=== PATIENT | male | born 1955 | race African-American/Black ===

== ENCOUNTER 2017-12-12 08:44 | Inpatient (IN) | payer OTHER ==
[2017-12-11 14:38] VITALS: BMI 28.3
[2017-12-12] MEDS ORDERED: DEXAMETHASONE SOD PHOSPHATE 4 MG/1 ML VIAL ONE (10:16)
[2017-12-12] MEDS ORDERED: PROPOFOL 20 ML ONE (10:16)
[2017-12-12] MEDS ORDERED: MIDAZOLAM HCL 2 MG/2 ML SINGLE DOSE VIAL ONE (10:16)
[2017-12-12] MEDS ORDERED: LIDOCAINE HCL/PF 2% SDV 5ML VIAL ONE (10:16)
--- NOTE | 2017-12-12 10:42 | HP ---
Admitting History and Physical - Admission Chief Complaint: Pt with right lower extremity rest pain. Pt has a occluded right common, internal, and external iliac artery on CTA. Pt here today for fem- fem bypass. Limitations to Obtaining History: No Limitations - Smoking History Smoking history: Never smoked Have you smoked in the past 12 months: No - Alcohol/Substance Use Hx Alcohol Use: No Home Medications - Allergies Allergies/Adverse Reactions: Allergies Allergy/AdvReac Type Severity Reaction Status Date / Time No Known Allergies Allergy Verified 12/11/17 14:38 - Home Medications Home Medications: Ambulatory Orders Amlodipine Besylate [Norvasc -] 5 mg PO DAILY 12/14/12 Aspirin [ASA -] 81 mg PO DAILY 12/14/12 Docusate Sodium [Colace -] 100 mg PO DAILY 12/14/12 Isosorbide Mononitrate [Imdur] 30 mg PO DAILY 12/14/12 Lisinopril [Prinivil -] 5 mg PO DAILY 12/14/12 Metoprolol Tartrate [Lopressor -] 25 mg PO DAILY 12/14/12 Topiramate [Topamax] 50 mg PO BID 12/14/12 levETIRAcetam [Keppra Xr -] 1,500 mg PO BID 12/14/12 Cyclobenzaprine HCl 10 mg PO DAILY 12/11/17 Finasteride 5 mg PO DAILY 12/11/17 Gabapentin 300 mg PO TID 12/11/17 Multivitamin [Daily Multiple Vitamin] 1 each PO DAILY 12/11/17 Ranitidine HCl [Zantac] 200 mg PO DAILY 12/11/17 Rivaroxaban [Xarelto -] DAILY 12/11/17 Tamsulosin HCl 0.4 mg PO DAILY 12/11/17 Warfarin Sodium [Coumadin] PO DAILY 12/11/17 Xalatan 0.005% Eye Drops - 1 drop OU DAILY 12/11/17 Review of Systems - Review of Systems Constitutional: reports: No Symptoms Eyes: reports: No Symptoms HENT: reports: No Symptoms Neck: reports: No Symptoms Cardiovascular: reports: No Symptoms Respiratory: reports: No Symptoms Gastrointestinal: reports: No Symptoms Musculoskeletal: reports: No Symptoms Integumentary: reports: No Symptoms Neurological: reports: No Symptoms Endocrine: reports: No Symptoms Hematology/Lymphatic: reports: No Symptoms Psychiatric: reports: No Symptoms Physical Examination Vital Signs: Vital Signs Temperature 97.9 F 10/25/18 09:50 Pulse Rate 91 H 12/12/17 09:50 Respiratory Rate 20 12/12/17 09:50 Blood Pressure 156/97 12/12/17 09:50 O2 Sat by Pulse Oximetry (%) 99 12/12/17 09:50 Constitutional: Yes: Well Nourished, No Distress, Calm Eyes: Yes: WNL, Conjunctiva Clear, EOM Intact HENT: Yes: WNL, Atraumatic, Normocephalic Neck: Yes: WNL, Supple, Trachea Midline Cardiovascular: Yes: WNL, Regular Rate and Rhythm Respiratory: Yes: WNL, Regular, CTA Bilaterally Gastrointestinal: Yes: WNL, Normal Bowel Sounds Musculoskeletal: Yes: WNL Extremities: Yes: WNL Edema: No Peripheral Pulses WNL: No Integumentary: Yes: WNL Neurological: Yes: WNL, Alert, Oriented ...Motor Strength: WNL Psychiatric: Yes: WNL Problem List - Problems (1) Atherosclerosis of right lower extremity with rest pain Assessment/Plan: Right lower ext rest pain secondary to right common, internal, external iliac artery occlusion. Pt cleared from a medical and cardiology standpoint. 1. For Fem-fem bypass today. Code(s): I70.221 - ATHSCL [place] ARTERIES OF EXTREMITIES W REST PAIN, RIGHT LEG
[2017-12-12] MEDS ORDERED: HEPARIN NA (PORCINE) 5,000 UNITS/ML 1ML VIAL ONE (11:11)
[2017-12-12] MEDS ORDERED: ceFAZolin SODIUM 1 GM VIAL ONE (11:19)
[2017-12-12] MEDS ORDERED: ceFAZolin SODIUM 1 GM VIAL IVPB ONE (11:49)
[2017-12-12] MEDS ORDERED: ONDANSETRON 4 MG/2 ML VIAL IVPUSH PRN (12:36)
[2017-12-12] MEDS ORDERED: POVIDONE-IODINE OINTMENT 10% - 28.4 GM TUBE ONE (14:00)
--- NOTE | 2017-12-12 14:02 | OP ---
Operative Note - Note: Operative Date: 12/12/17 Pre-Operative Diagnosis: Right lower extremity rest pain Operation: Femoral-Femoral bypass with PTFE graft Findings: Right common iliac artery, internal iliac, external iliac artery occlusion Post-Operative Diagnosis: Same as Pre-op Surgeon: Jesús Powell Inpatient Services Director: Aime Jolly Anesthesia: General Estimated Blood Loss (mls): 100 Operative Report Dictated: Yes
--- NOTE | 2017-12-12 15:09 | SURG ---
Surgery Health Safety Manager Note Health Safety Manager: Aime Jolly PA-C Date of Service: 12/12/17 Diagnosis: Right lower extremity rest pain secondary to Right common iliac artery, internal iliac, external iliac artery occlusion Procedure: Femoral-Femoral bypass with PTFE graft I was present for the entirety of the operative procedure. For further detail, please refer to operative report. Visit type - Case Type Case Type: Scheduled - New patient This patient is new to me today: Yes Date on this admission: 12/12/17
[2017-12-12] MEDS: LACTATED RINGERS SOLUTION 1,000 ML IV SCH (16:03)
[2017-12-12] MEDS: APIXABAN 5 MG TABLET PO SCH ×2 (16:03→21:47)
--- NOTE | 2017-12-12 17:36 | CONSULT ---
Consultation: REQUESTING PROVIDER: CONSULT REQUEST: We have been asked to medically evaluate this patient for ( specify). HISTORY OF PRESENT ILLNESS: Patient is a poor historian. History obtained from prior notes and chart. 62 yo M w a history of CVA w residual R hemiparesis, HTN, Afib, Anemia, GERD, SBO, BPH came in for elective Fem -Fem R sided bypass surgery by Dr. Powell. Post surgery patient transfered to ICU for monitoring. REVIEW OF SYSTEMS: Unobtainable. PHYSICAL EXAMINATION Vital Signs - 24 hr 12/12/17 12/12/17 12/12/17 09:50 14:11 14:25 Temperature 97.9 F 98.4 F Pulse Rate 91 H 101 H 106 H Respiratory 20 14 20 Rate Blood Pressure 156/97 156/90 164/90 O2 Sat by Pulse 99 96 96 Oximetry (%) 12/12/17 12/12/17 12/12/17 14:40 14:55 15:10 Temperature Pulse Rate 105 H 104 H 103 H Respiratory 20 20 20 Rate Blood Pressure 152/88 161/90 166/94 O2 Sat by Pulse 96 95 96 Oximetry (%) 12/12/17 12/12/17 12/12/17 15:25 15:40 15:55 Temperature Pulse Rate 110 H 108 H 108 H Respiratory 20 20 20 Rate Blood Pressure 187/97 H 167/91 155/93 O2 Sat by Pulse 98 96 98 Oximetry (%) 12/12/17 12/12/17 12/12/17 16:10 16:25 16:40 Temperature Pulse Rate 102 H 106 H 104 H Respiratory 20 20 20 Rate Blood Pressure 155/89 142/85 157/89 O2 Sat by Pulse 98 99 98 Oximetry (%) 12/12/17 12/12/17 12/12/17 16:50 17:05 17:16 Temperature 98.9 F 98 F Pulse Rate 107 H 104 H Respiratory 20 18 Rate Blood Pressure 142/92 157/104 H O2 Sat by Pulse 98 Oximetry (%) GENERAL: Awake, alert, and fully oriented, in no acute distress. HEAD: Normal with no signs of trauma. EYES: Pupils equal, round and reactive to light, extraocular movements intact, sclera anicteric, conjunctiva clear. No lid lag. EARS, NOSE, THROAT: Ears normal, nares patent, oropharynx clear without exudates. Moist mucous membranes. NECK: Normal range of motion, supple without lymphadenopathy, JVD, or masses. LUNGS: Breath sounds equal, clear to auscultation bilaterally. No wheezes, and no crackles. No accessory muscle use. HEART: Tachycardic rate and regular rhythm, normal S1 and S2 without murmur, rub or gallop. ABDOMEN: Soft, nontender, not distended, normoactive bowel sounds, no guarding, no rebound, no masses. No hepatomegaly or splenomegaly. MUSCULOSKELETAL: Normal range of motion at all joints. No bony deformities or tenderness. No CVA tenderness. UPPER EXTREMITIES: 2+ pulses, warm, well-perfused. No cyanosis. No clubbing. Cap refill <2 seconds. No peripheral edema. LOWER EXTREMITIES: 2+ pulses, warm, well-perfused. No peripheral edema. There is significant TTP in the R leg. Motor strength is decreased in R compared to L. Patient has discoloration of b/l shins which appear to be pre-ulcerous in nature. Laboratory Results - last 24 hr 12/12/17 12/12/17 11:00 11:15 Blood Type O POSITIVE O POSITIVE Antibody Screen Negative Active Medications Generic Name Dose Route Start Last Admin Trade Name Freq PRN Reason Stop Dose Admin Amlodipine Besylate 5 mg 12/13/17 10:00 Norvasc - PO DAILY AMANDA Apixaban 5 mg 12/12/17 15:15 12/12/17 16:03 Eliquis - PO 5 mg BID AMANDA Administration Cyclobenzaprine HCl 5 mg 12/13/17 10:00 Flexeril - PO DAILY AMANDA Fentanyl 50 mcg 12/12/17 12:36 12/12/17 16:15 Sublimaze Injection - IVPUSH 50 mcg [id number] PRN Administration PAIN-PACU ORDER X 4 DOSES ONLY Finasteride 5 mg 12/13/17 10:00 Proscar - PO DAILY AMANDA Lactated Ringer's 1,000 mls @ 75 mls/hr 12/12/17 12:45 12/12/17 16:03 Lactated Ringers Solution IV 75 mls/hr ASDIR AMANDA Administration Isosorbide Mononitrate 30 mg 12/13/17 10:00 Imdur - PO DAILY AMANDA Levetiracetam 1,500 mg 12/12/17 22:00 Keppra Xr - PO BID AMANDA Lisinopril 5 mg 12/13/17 10:00 Prinivil PO DAILY AMANDA Ondansetron HCl 4 mg 12/12/17 12:36 Zofran Injection IVPUSH Q6H PRN NAUSEA AND/OR VOMITING ASSESSMENT/PLAN: PVD s/p Fem-Fem bypass. Hx of CVA w R sided residual hemiparesis AFIB Anemia GERD BPH Plan: Monitor vitals monitor Is and Os Regular pulse check - Pain management with morphine. Continue with keppra Continue with BP meds Lisinopril and amlodipine Continue with Imdur Continue Elliquis for AIF Protonix for GERD Starting on 50 ml/hr on oral clear liquid. Dispo: We will continue to follow the patient. Thank you for this consultative opportunity. Visit type - Emergency Visit Emergency Visit: No - New Patient This patient is new to me today: Yes Date on this admission: 12/12/17 - Critical Care Critical Care patient: Yes Total Critical Care Time (in minutes): 36 Critical Care Statement: The care of this patient involved high complexity decision making to prevent further life threatening deterioration of the patient 's condition and/or to evaluate & treat vital organ system(s) failure or risk of failure.
[2017-12-12] MEDS ORDERED: MORPHINE SULFATE 2 MG/ML VIAL IVPUSH PRN (17:43)
[2017-12-12] MEDS: PANTOPRAZOLE 40 MG TABLET (FP) PO SCH (18:30)
[2017-12-12] MEDS ORDERED: METOPROLOL TARTRATE 5 MG/5 ML VIAL ONE (19:25)
[2017-12-12] MEDS ORDERED: LORazepam 2 MG/ML SDV VIAL IVPUSH ONE (19:26)
[2017-12-12] MEDS ORDERED: METOPROLOL TARTRATE 5 MG/5 ML VIAL IVPUSH ONE (19:26)
[2017-12-12] MEDS ORDERED: levETIRAcetam 500 MG/5 ML INJECTION VIAL IVPB ONE ×3 (19:27→19:45)
[2017-12-12] MEDS ORDERED: LORazepam 2 MG/ML SDV VIAL ONE (19:27)
[2017-12-12] MEDS ORDERED: metoPROLOL SUCCINATE 25 MG TAB.SR.24H (FP) PO ONE (19:38)
--- NOTE | 2017-12-12 19:53 | PN ---
Progress Note (short form) - Note Progress Note: Patient around 19:30 had partial seizure for about 1.5 minutes associated with Tachycardia. Patient was awake during the seizure with no loss of consciousness. Patient's heart rate increased to the 170's but maintained a saturation at 100% on RA Lopressor 5mg IVP given and heart rate went down to the 90's Loading dose of Keppra 1000mg IVP given Ativan 2mg ordered but not given due to halt of seizure Dr. Powell, vascular Surgeon, aware of situation and was at bedside to assess patient. Recommended Medicine consult Patient likely missed dose of Keppra for procedure today Labs ordered: CBC, CMP, PT/INR, LACTIC ACIDOSIS, CARDIAC PROFILE, EKG EKG - NSR @97BMP, No ST-T changes Will continue to monitor. Symphony made aware
[2017-12-12 21:17] LABS: HEMATOCRIT 39.6 % (35.4-49); HEMOGLOBIN 12.6 GM/dL (11.7-16.9); LYMPH % 13.3 % (8-40); MCHC 31.7 g/dl (32.0-35.9); MEAN CELL VOLUME 88.5 fl (80-96); MONO % 9.7 % (3.8-10.2); PLATELET COUNT 182 K/MM3 (134-434); RBC 4.48 M/mm3 (4.00-5.60); RDW 12.8 % (11.9-15.9); WHITE BLOOD COUNT 12.8 K/mm3 (4.0-10.0)
[2017-12-12 21:30] LABS: INR 1.18 (0.83-1.09)
--- NOTE | 2017-12-12 21:38 | CONSULT ---
Consultation: REQUESTING PROVIDER: Dr. Jesús Powell CONSULT REQUEST: We have been asked to medically evaluate this patient for seizure. HISTORY OF PRESENT ILLNESS: 62-year-old male who resides at [facility], with a PMH significant for A-fib on Eliquis, CVA with right-sided hemiparesis, HTN, seizures, PVD, aphasia, anemia, GERD, SBO, and BPH presented today for elective femoral- femoral R sided bypass surgery by Dr. Powell. The procedure was performed today without complication, he was admitted to the ICU for post-op monitoring. At 19: 30, patient observed having a 1.5 min episode of jerking motions and tachycardia of 167. A rapid response was called and patient was given IV Metoprolol, Lopressor 5 mg, and 1500 mg IV keppra. HR slowed to the 90s and jerking motions subsided. STAT labs notable for WBC of 12.8, lactic acid of 4.6 , AST 354, ALT 374, Alk phos 141. EKG unremarkable for acute ischemic event. Patient now back to baseline and resting comfortably in his room. Patient is non -verbal and limited history in medical chart. REVIEW OF SYSTEMS: Unable to obtain, patient non-verbal. PHYSICAL EXAMINATION Vital Signs - 24 hr 12/12/17 12/12/17 12/12/17 09:50 14:11 14:25 Temperature 97.9 F 98.4 F Pulse Rate 91 H 101 H 106 H Respiratory 20 14 20 Rate Blood Pressure 156/97 156/90 164/90 O2 Sat by Pulse 99 96 96 Oximetry (%) 12/12/17 12/12/17 12/12/17 14:40 14:55 15:10 Temperature Pulse Rate 105 H 104 H 103 H Respiratory 20 20 20 Rate Blood Pressure 152/88 161/90 166/94 O2 Sat by Pulse 96 95 96 Oximetry (%) 12/12/17 12/12/17 12/12/17 15:25 15:40 15:55 Temperature Pulse Rate 110 H 108 H 108 H Respiratory 20 20 20 Rate Blood Pressure 187/97 H 167/91 155/93 O2 Sat by Pulse 98 96 98 Oximetry (%) 12/12/17 12/12/17 12/12/17 16:10 16:25 16:40 Temperature Pulse Rate 102 H 106 H 104 H Respiratory 20 20 20 Rate Blood Pressure 155/89 142/85 157/89 O2 Sat by Pulse 98 99 98 Oximetry (%) 12/12/17 12/12/17 12/12/17 16:50 17:05 17:16 Temperature 98.9 F 98 F Pulse Rate 107 H 104 H Respiratory 20 18 Rate Blood Pressure 142/92 157/104 H O2 Sat by Pulse 98 Oximetry (%) 12/12/17 19:35 Temperature Pulse Rate 167 H Respiratory Rate Blood Pressure 168/99 O2 Sat by Pulse Oximetry (%) GENERAL: Awake, alert, non-verbal, in no acute distress. HEAD: Normal with no signs of trauma. EYES: Pupils equal, round and reactive to light, extraocular movements intact, sclera anicteric, conjunctiva clear. No lid lag. EARS, NOSE, THROAT: Many missing teeth, nares patent, oropharynx clear without exudates. Moist mucous membranes. NECK: Normal range of motion, supple without lymphadenopathy, JVD, or masses. LUNGS: Breath sounds equal, clear to auscultation bilaterally. No wheezes, and no crackles. No accessory muscle use. HEART: slightly tachycardic rate, regular rhythm, normal S1 and S2 without murmur, rub or gallop. ABDOMEN: Soft, nontender, not distended, normoactive bowel sounds, no guarding, no rebound, no masses. No hepatomegaly or splenomegaly. : +Mathew draining dark yellow urine. MUSCULOSKELETAL: Normal range of motion at all joints. No bony deformities or tenderness. No CVA tenderness. UPPER EXTREMITIES: 2+ pulses, warm, well-perfused. No cyanosis. No clubbing. Cap refill <2 seconds. No peripheral edema. LOWER EXTREMITIES: 2+ pulses, warm, well-perfused. No calf tenderness. No peripheral edema. NEUROLOGICAL: Aphasia PSYCHIATRIC: Good eye contact, calm, pleasant SKIN: Warm, dry, normal turgor, no rashes or lesions noted. Laboratory Results - last 24 hr 12/12/17 12/12/17 12/12/17 11:00 11:15 20:45 WBC 12.8 H RBC 4.48 Hgb 12.6 Hct 39.6 D MCV 88.5 MCH 28.0 MCHC 31.7 L RDW 12.8 Plt Count 182 D MPV 9.0 Absolute Neuts (auto) 9.8 H Neutrophils % 77.0 D Lymphocytes % 13.3 D Monocytes % 9.7 Eosinophils % 0.0 D Basophils % 0.0 Nucleated RBC % 0 Blood Type O POSITIVE O POSITIVE Antibody Screen Negative Active Medications Generic Name Dose Route Start Last Admin Trade Name Freq PRN Reason Stop Dose Admin Amlodipine Besylate 5 mg 12/13/17 10:00 Norvasc - PO DAILY [facility] Apixaban 5 mg 12/12/17 15:15 12/12/17 16:03 Eliquis - PO 5 mg BID [facility] Administration Cyclobenzaprine HCl 5 mg 12/13/17 10:00 Flexeril - PO DAILY [facility] Fentanyl 50 mcg 12/12/17 12:36 12/12/17 16:15 Sublimaze Injection - IVPUSH 50 mcg [id number] PRN Administration PAIN-PACU ORDER X 4 DOSES ONLY Finasteride 5 mg 12/13/17 10:00 Proscar - PO DAILY [facility] Lactated Ringer's 1,000 mls @ 75 mls/hr 12/12/17 12:45 12/12/17 16:03 Lactated Ringers Solution IV 75 mls/hr ASDIR [facility] Administration Isosorbide Mononitrate 30 mg 12/13/17 10:00 Imdur - PO DAILY [facility] Levetiracetam 1,500 mg 12/13/17 10:00 Keppra Xr - PO BID [facility] Lisinopril 5 mg 12/13/17 10:00 Prinivil PO DAILY [facility] Morphine Sulfate 2 mg 12/12/17 17:43 Morphine Sulfate IVPUSH Q6H PRN PAIN LEVEL 7 - 10 Ondansetron HCl 4 mg 12/12/17 12:36 Zofran Injection IVPUSH Q6H PRN NAUSEA AND/OR VOMITING Pantoprazole Sodium 40 mg 12/12/17 17:45 12/12/17 18:30 Protonix - PO 40 mg DAILY AMANDA Administration ASSESSMENT/PLAN: 62-year-old male with a PMH significant for A-fib, CVA with right-sided hemiparesis, HTN, seizures, PVD, mild aphasia, anemia, GERD, SBO, and BPH had elective femoral-femoral R sided bypass surgery by Dr. Andre mora. While in recovery in the ICU he was observed having a 1.5 minute seizure. Seizures -Simple partial seizure post-op today -It is presumed patient did not receive AM dose of Keppra prior to surgery -Patient with a hx of seizures -On Keppra 1000 mg BID -Continue to monitor in ICU Leukocytosis and lactic acidosis -Patient afebrile -Likely secondary to seizure activity -STAT lactic acid ordered -Repeat CBC ordered Elevated Liver enzymes -Will order repeat LFTs for tomorrow -Abd US ordered A-fib on coumadin -On Eliquis 5 mg BID -On Metoprolol Succinate 25 mg for rate control -INR 1.18 HTN -Continue Lisinopril 5 mg -Continue Amlodipine 5 mg daily GERD -Protonix 40 mg qday BPH -Continue Proscar 5 mg PO qday FEN --LR @75 cc/hr --Electrolytes replete as indicated --Clear liquid diet DVT Prophylaxis --On Eliquis Dispo: We will continue to follow the patient. Thank you for this consultative opportunity. Visit type - Emergency Visit Emergency Visit: Yes ED Registration Date: 12/12/17 Care time: The patient presented to the Emergency Department on the above date and was hospitalized for further evaluation of their emergent condition. - New Patient This patient is new to me today: Yes Date on this admission: 12/18/17 - Critical Care Critical Care patient: No
[2017-12-12 21:44] LABS: ALBUMIN 3.4 g/dl (3.4-5.0); ALK PHOS 141 U/L (45-117); ANION GAP 10 MMOL/L (8-16); BILIRUBIN,TOTAL 1.4 mg/dL (0.2-1); BLOOD UREA NITROGEN 16 mg/dL (7-18); CALCIUM 8.5 mg/dL (8.5-10.1); CHLORIDE 112 mmol/L (98-107); CO2 24 mmol/L (21-32); CREATININE 1.2 mg/dL (0.55-1.3); GLUCOSE,RANDOM 148 mg/dL (74-106); MAGNESIUM 1.9 mg/dL (1.8-2.4); PHOSPHOROUS 3.2 mg/dL (2.5-4.9); POTASSIUM 4.4 mmol/L (3.5-5.1); SGOT/AST 354 U/L (15-37); SGPT/ALT 374 U/L (13-61); SODIUM 146 mmol/L (136-145); TOT PROT 7.6 g/dl (6.4-8.2)
[2017-12-12] MEDS ORDERED: levETIRAcetam XR 500 MG TAB PO SCH (22:00)
[2017-12-13 06:20] LABS: BASO % 0.5 % (0-2.0); EOS % 0.3 % (0-4.5); HEMATOCRIT 40.4 % (35.4-49); HEMOGLOBIN 12.6 GM/dL (11.7-16.9); LYMPH % 27.2 % (8-40); MCH 27.8 pg (25.7-33.7); MCHC 31.2 g/dl (32.0-35.9); MEAN CELL VOLUME 89.2 fl (80-96); MONO % 12.5 % (3.8-10.2); NEUT % 59.5 % (42.8-82.8); PLATELET COUNT 158 K/MM3 (134-434); RBC 4.52 M/mm3 (4.00-5.60); RDW 12.6 % (11.9-15.9); WHITE BLOOD COUNT 15.1 K/mm3 (4.0-10.0)
[2017-12-13 07:39] LABS: ALBUMIN 3.4 g/dl (3.4-5.0); ALK PHOS 134 U/L (45-117); ANION GAP 7 MMOL/L (8-16); BILIRUBIN,TOTAL 1.9 mg/dL (0.2-1); BLOOD UREA NITROGEN 14 mg/dL (7-18); CALCIUM 8.7 mg/dL (8.5-10.1); CHLORIDE 110 mmol/L (98-107); CO2 25 mmol/L (21-32); CREATININE 0.9 mg/dL (0.55-1.3); GLUCOSE,RANDOM 102 mg/dL (74-106); MAGNESIUM 1.9 mg/dL (1.8-2.4); PHOSPHOROUS 2.4 mg/dL (2.5-4.9); POTASSIUM 3.9 mmol/L (3.5-5.1); SGOT/AST 192 U/L (15-37); SGPT/ALT 306 U/L (13-61); SODIUM 143 mmol/L (136-145); TOT PROT 7.2 g/dl (6.4-8.2)
--- NOTE | 2017-12-13 07:55 | OP ---
DATE OF OPERATION: 12/13/2017 PREOPERATIVE DIAGNOSIS: Right lower extremity rest pain. POSTOPERATIVE DIAGNOSIS: Right lower extremity rest pain. PROCEDURE: Femorofemoral bypass with polytetrafluoroethylene graft. SURGEON: Jesús Powell MD FISCAL TECHNICIAN: DAWOOD Solis BLOOD LOSS: 100 mL. INDICATIONS: The patient is a 62-year-old male from [facility] who was sent to us with a CTA report showing that he has a right common iliac, right internal and right external iliac occlusion. He has bilateral SFA disease, as well. He is having rest pain in his right lower extremity. His left iliac arteries are patent, and he would be an appropriate candidate for a fem-fem bypass to relieve his pain. Patient was evaluated by the medical and the cardiology team, and he was then cleared for his surgery. Patient then came in through ambulatory surgery. Patients family was consented for the procedure understanding all risks, benefits, and alternatives, and was then taken to the operating room. PROCEDURE IN DETAIL: Once in the operating suite, he was laid on the operating table in the supine manner, and general anesthesia was administered to the patient. Mathew catheter was placed by the nurses. Thereafter bilateral groins were prepped and draped in the sterile surgical manner. Under ultrasound guidance, we were able to visualize the right and left common femoral arteries, and those were marked on the skin, and a vertical incision was drawn above and below the bifurcation. We then went ahead and made a 7-cm incision in bilateral groins. Bovie electrocautery was used to control hemostasis. We were able to get down through all the subcutaneous tissue and then get down to the femoral sheath. Femoral sheath was then opened and dissected. The common femoral artery was dissected anteriorly and posteriorly. We then dissected out our deep profunda artery bilaterally, as well. We then placed vessel loops around the deep profunda artery and around the proximal common femoral artery bilaterally. We then went ahead and took an 8 x 55 ringed PTFE graft and went ahead and put our tunneler, and we had a curved tunneler that went into the suprapubic region, and we were able to bring the tunneler from the left groin to the right groin. We then attached a PTFE graft, and the graft was tunneled through. We then cut the graft to size on the left side and doubled the graft. Then, 5000 units of IV heparin were administered to the patient proximal and distal control on our femoral arteries and the profunda arteries. We then went ahead and took a No. 15 blade and made an arteriotomy which was extended to 1 cm using May scissors, 6-0 Prolene stay sutures were placed. We then went ahead and used 6-0 Prolene double-armed and went outside in on the graft and inside out on the artery, and ran the stitch around it to form an anastomosis between the artery and the graft. Once that was done, we opened the profunda first, then, the inflow, and there was good flow in our graft, and the proximal graft was clamped with the vascular clamp. We went over to the right groin. The graft was cut to size, rings were removed, graft was beveled. We got proximal distal control on our common femoral artery and the profunda artery. Using a 15 blade, we made an arteriotomy, which was extended to 1 cm using May scissors. We then went ahead and placed 6-0 Prolene stay sutures on the artery. We then used 6-0 Prolene double-armed, went outside in on the graft and inside out on the artery, and ran the stitch around it to form an anastomosis between the artery and the graft prior to completely suturing in the graft. We flushed the graft by opening the inflow of the graft from the left side, and there was good flow. We then sutured the graft in place. We then opened the distal right common femoral artery first and then the proximal, and we then opened our graft, and there was good flow. Using a Doppler intraoperatively, we were able to get a good signal in the graft and in the upper [place] right common femoral artery and SFA and into the profunda. At this point, both wounds were irrigated copiously. Surgicel was placed, 3-0 Vicryl was used, and the subcutaneous tissues were approximated in an interrupted manner, and the skin was closed with skin rossi. The area was wet and dried, 4x4s and Tegaderm were placed. The patient tolerated the procedure with no complications. Patient was transferred to PACU in stable condition. The patient had a strong Dopplerable PT signal in the right foot. Total blood loss 100 mL. JESÚS POWELL DO [id number]
[2017-12-13 08:27] LABS: BILIRUBIN,DIRECT 0.5 mg/dL (0.0-0.2)
--- NOTE | 2017-12-13 08:34 | PN ---
Progress Note, Physician Chief Complaint: day 1 s/p femfem bypass - Current Medication List Current Medications: Active Medications Amlodipine Besylate (Norvasc -) 5 mg PO DAILY [facility] Apixaban (Eliquis -) 5 mg PO BID [facility] Last Admin: 12/12/17 21:47 Dose: 5 mg Cyclobenzaprine HCl (Flexeril -) 5 mg PO DAILY [facility] Finasteride (Proscar -) 5 mg PO DAILY [facility] Lactated Ringer's (Lactated Ringers Solution) 1,000 mls @ 75 mls/hr IV ASDIR [facility] Last Admin: 12/12/17 16:03 Dose: 75 mls/hr Sodium Phosphate 15 mm/ Sodium (Chloride) 255 mls @ 62.5 mls/hr IVPB ONCE ONE Stop: 12/13/17 12:23 Isosorbide Mononitrate (Imdur -) 30 mg PO DAILY [facility] Levetiracetam (Keppra Xr -) 1,500 mg PO BID [facility] Lisinopril (Prinivil) 5 mg PO DAILY [facility] Morphine Sulfate (Morphine Sulfate) 2 mg IVPUSH Q6H PRN PRN Reason: PAIN LEVEL 7 - 10 Ondansetron HCl (Zofran Injection) 4 mg IVPUSH Q6H PRN PRN Reason: NAUSEA AND/OR VOMITING Pantoprazole Sodium (Protonix -) 40 mg PO DAILY [facility] Last Admin: 12/12/17 18:30 Dose: 40 mg - Objective Vital Signs: Vital Signs Temperature 98.1 F 12/13/17 02:00 Pulse Rate 89 12/13/17 04:00 Respiratory Rate 20 12/13/17 04:00 Blood Pressure 148/86 12/13/17 04:00 O2 Sat by Pulse Oximetry (%) 98 12/12/17 21:00 Labs: CBC, BMP 12/13/17 05:30 12/13/17 05:30 INR, PTT INR 1.18 (0.83-1.09) H 12/12/17 20:45 Assessment/Plan Tolerated GETA for femfem bypass well. However, pt did have a seizure episode yesterday night (he has a history of epilepsy, with a seizure every few months as per sister), and was treated with keppra and metoprolol (tachycardia associated with sz). Doing well this morning.
[2017-12-13] MEDS ORDERED: PT OWN MED DRAWER 7, Y5N ONE ×3 (09:32→21:30)
[2017-12-13] MEDS: amLODIPine BESYLATE 5 MG TABLET (FP) PO SCH (09:35)
[2017-12-13] MEDS: PANTOPRAZOLE 40 MG TABLET (FP) PO SCH (09:35)
[2017-12-13] MEDS: APIXABAN 5 MG TABLET PO SCH ×2 (09:35→22:08)
[2017-12-13] MEDS: ISOSORBIDE MONONITRATE 30 MG TAB.SR.24H (FP) PO SCH (09:35)
[2017-12-13] MEDS: FINASTERIDE 5 MG TABLET (FP) PO SCH (09:35)
[2017-12-13] MEDS: CYCLOBENZAPRINE HCL 10 MG TABLET (FP) PO SCH (09:35)
[2017-12-13] MEDS: levETIRAcetam XR 500 MG TAB PO SCH ×2 (09:36→22:08)
[2017-12-13] MEDS: LISINOPRIL 5 MG TABLET (FP) PO SCH (09:36)
[2017-12-13] MEDS ORDERED: SODIUM PHOSPHATE - 15 MM in SODIUM CHLORIDE 250 ML IVPB ONE (10:00)
--- NOTE | 2017-12-13 10:18 | PN ---
Progress Note (short form) - Note Progress Note: Surgery POD #1 Femoral-Femoral bypass with PTFE graft patient seen and examined at the bedside. Patient communicates with yes or no answers, non-verbal. When asked if his pain is controlled he says yes. When asked about leg pain he says yes and points to his right leg. When asked if it is improved from pre-op he says yes. He denies any CP, SOB, N/V Fever or chills. He is tolerating his clear diet. Vital Signs Temp 99.3 F 12/13/17 08:00 Pulse 96 H 12/13/17 08:00 Resp 20 12/13/17 09:00 BP 147/83 12/13/17 08:00 Pulse Ox 98 12/13/17 09:00 Intake & Output 12/12/17 12/12/17 12/13/17 11:59 23:59 11:59 Intake Total 1375 525 Output Total 2600 600 Balance -1225 -75 Weight 202 lb 9.6 oz Intake: IV 1275 525 Lactated Ringers Solution 525 525 1,000 ml @ 75 mls/hr IV ASDIR AMANDA Rx#:[id number] IVPB 100 Output: Urine 2500 600 Mathew 800 600 Estimated Blood Loss 100 Other: Voiding Method Incontinent Indwelling Catheter Indwelling Catheter Weight Measurement Method Built in [facility] CBC, BMP 12/13/17 05:30 12/13/17 05:30 PE: A&Ox3, NAD, resting comfortably Unlabored resp on RA B/L Groin incisions c/d/i with surrounding tissue intact and no evidence of tracking erythema or collection. Thighs soft, supple and non-tender B/L LE compartments soft, non-tender and warm to touch. Dopplerable TP pulses b/ l, and + DP on Left LE. (Dr Powell followed with bedside doppler of graft and confirmed adequate flow.) Problem List - Problems (1) Status post femorofemoral bypass surgery Assessment/Plan: POD #1 fem-fem bypass, patient doing well. 1) Continue Elequis BID 2) OOb as tolerated 3) Advance diet 4) Keep dressing clean and dry 5) D/c planning for home today per Dr. Powell Code(s): Z95.828 - PRESENCE OF OTHER VASCULAR IMPLANTS AND GRAFTS
--- NOTE | 2017-12-13 12:14 | PN ---
Teaching Attending Note Name of Resident: Jeff Donald ATTENDING PHYSICIAN STATEMENT I saw and evaluated the patient. I reviewed the resident's note and discussed the case with the resident. I agree with the resident's findings and plan as documented. SUBJECTIVE: Patent seen and examined in the ICU. Awake and responsive. Denied CP or SOB. Seen by vascular surgery this AM and cleared to be discharged. Intake & Output 12/10/17 12/11/17 12/12/17 12/13/17 23:59 23:59 23:59 23:59 Intake Total 1375 525 Output Total 2600 600 Balance -1225 -75 Weight 197 lb 202 lb 9.6 oz Last Vital Signs Temp Pulse Resp BP Pulse Ox 99.3 F 95 H 20 157/82 98 12/13/17 08:00 12/13/17 10:25 12/13/17 10:25 12/13/17 10:25 12/13/17 09:00 Active Medications Amlodipine Besylate (Norvasc -) 5 mg PO DAILY [facility] Last Admin: 12/13/17 09:35 Dose: 5 mg Apixaban (Eliquis -) 5 mg PO BID [facility] Last Admin: 12/13/17 09:35 Dose: 5 mg Cyclobenzaprine HCl (Flexeril -) 5 mg PO DAILY [facility] Last Admin: 12/13/17 09:35 Dose: 5 mg Finasteride (Proscar -) 5 mg PO DAILY [facility] Last Admin: 12/13/17 09:35 Dose: 5 mg Lactated Ringer's (Lactated Ringers Solution) 1,000 mls @ 75 mls/hr IV ASDIR [facility] Last Admin: 12/12/17 16:03 Dose: 75 mls/hr Sodium Phosphate 15 mm/ Sodium (Chloride) 255 mls @ 62.5 mls/hr IVPB ONCE ONE Stop: 12/13/17 14:04 Last Admin: 12/13/17 11:55 Dose: 62.5 mls/hr Isosorbide Mononitrate (Imdur -) 30 mg PO DAILY [facility] Last Admin: 12/13/17 09:35 Dose: 30 mg Levetiracetam (Keppra Xr -) 1,500 mg PO BID [facility] Last Admin: 12/13/17 09:36 Dose: 1,500 mg Lisinopril (Prinivil) 5 mg PO DAILY [facility] Last Admin: 12/13/17 09:36 Dose: 5 mg Morphine Sulfate (Morphine Sulfate) 2 mg IVPUSH Q6H PRN PRN Reason: PAIN LEVEL 7 - 10 Ondansetron HCl (Zofran Injection) 4 mg IVPUSH Q6H PRN PRN Reason: NAUSEA AND/OR VOMITING Pantoprazole Sodium (Protonix -) 40 mg PO DAILY [facility] Last Admin: 12/13/17 09:35 Dose: 40 mg GENERAL: Awake and responsive, in no acute distress. HEAD: Normal with no signs of trauma. EYES: Pupils equal, round and reactive to light, extraocular movements intact, sclera anicteric, conjunctiva clear. No lid lag. EARS, NOSE, THROAT: Ears normal, nares patent, oropharynx clear without exudates. Moist mucous membranes. NECK: Normal range of motion, supple without lymphadenopathy, JVD, or masses. LUNGS: Breath sounds equal, clear to auscultation bilaterally. No wheezes, and no crackles. No accessory muscle use. HEART: Tachycardic rate and regular rhythm, normal S1 and S2 without murmur, rub or gallop. ABDOMEN: Soft, nontender, not distended, normoactive bowel sounds, no guarding, no rebound, no masses. No hepatomegaly or splenomegaly. MUSCULOSKELETAL: Normal range of motion at all joints. No bony deformities or tenderness. No CVA tenderness. UPPER EXTREMITIES: 2+ pulses, warm, well-perfused. No cyanosis. No clubbing. Cap refill <2 seconds. No peripheral edema. LOWER EXTREMITIES: 2+ pulses, warm, well-perfused. No peripheral edema. Motor strength is decreased in R compared to L. Laboratory Results - last 24 hr 12/12/17 12/12/17 12/12/17 11:00 11:15 20:45 WBC 12.8 H RBC 4.48 Hgb 12.6 Hct 39.6 D MCV 88.5 MCH 28.0 MCHC 31.7 L RDW 12.8 Plt Count 182 D MPV 9.0 Absolute Neuts (auto) 9.8 H Neutrophils % 77.0 D Lymphocytes % 13.3 D Monocytes % 9.7 Eosinophils % 0.0 D Basophils % 0.0 Nucleated RBC % 0 PT with INR INR Sodium Potassium Chloride Carbon Dioxide Anion Gap BUN Creatinine Creat Clearance w eGFR Random Glucose Lactic Acid Calcium Phosphorus Magnesium Total Bilirubin Direct Bilirubin AST ALT Alkaline Phosphatase Creatine Kinase Creatine Kinase Index CK-MB (CK-2) Troponin I Total Protein Albumin TSH Blood Type O POSITIVE O POSITIVE Antibody Screen Negative 12/12/17 12/12/17 12/12/17 20:45 20:45 20:45 WBC RBC Hgb Hct MCV MCH MCHC RDW Plt Count MPV Absolute Neuts (auto) Neutrophils % Lymphocytes % Monocytes % Eosinophils % Basophils % Nucleated RBC % PT with INR 14.00 H INR 1.18 H Sodium 146 H Potassium 4.4 Chloride 112 H Carbon Dioxide 24 Anion Gap 10 BUN 16 Creatinine 1.2 Creat Clearance w eGFR > 60 Random Glucose 148 H Lactic Acid Calcium 8.5 Phosphorus 3.2 Magnesium 1.9 Total Bilirubin 1.4 H Direct Bilirubin AST 354 H ALT 374 H Alkaline Phosphatase 141 H Creatine Kinase 206 Creatine Kinase Index 0.9 CK-MB (CK-2) 1.9 Troponin I < 0.02 Total Protein 7.6 Albumin 3.4 TSH Blood Type Antibody Screen 12/12/17 12/13/17 12/13/17 20:45 00:15 05:30 WBC 15.1 H RBC 4.52 Hgb 12.6 Hct 40.4 MCV 89.2 MCH 27.8 MCHC 31.2 L RDW 12.6 Plt Count 158 MPV 9.0 Absolute Neuts (auto) 9.0 H Neutrophils % 59.5 D Lymphocytes % 27.2 D Monocytes % 12.5 H Eosinophils % 0.3 D Basophils % 0.5 D Nucleated RBC % 0 PT with INR INR Sodium Potassium Chloride Carbon Dioxide Anion Gap BUN Creatinine Creat Clearance w eGFR Random Glucose Lactic Acid 4.6 H* 2.4 H* Calcium Phosphorus Magnesium Total Bilirubin Direct Bilirubin AST ALT Alkaline Phosphatase Creatine Kinase Creatine Kinase Index CK-MB (CK-2) Troponin I Total Protein Albumin TSH Blood Type Antibody Screen 12/13/17 12/13/17 12/13/17 05:30 05:30 05:30 WBC RBC Hgb Hct MCV MCH MCHC RDW Plt Count MPV Absolute Neuts (auto) Neutrophils % Lymphocytes % Monocytes % Eosinophils % Basophils % Nucleated RBC % PT with INR INR Sodium 143 Potassium 3.9 Chloride 110 H Carbon Dioxide 25 Anion Gap 7 L BUN 14 Creatinine 0.9 Creat Clearance w eGFR > 60 Random Glucose 102 Lactic Acid 1.7 Calcium 8.7 Phosphorus 2.4 L Magnesium 1.9 Total Bilirubin 1.9 H Cancelled Direct Bilirubin 0.5 H Cancelled AST 192 H Cancelled ALT 306 H Cancelled Alkaline Phosphatase 134 H Cancelled Creatine Kinase Creatine Kinase Index CK-MB (CK-2) Troponin I Total Protein 7.2 Cancelled Albumin 3.4 Cancelled TSH 0.59 Blood Type Antibody Screen ASSESSMENT/PLAN: PVD POD # 1 S/P Fem-Fem bypass. Hx of CVA w R sided residual hemiparesis AFIB Anemia GERD BPH Plan: Cleared for D/C by vascular. To reach out to PMD in community to discuss discharge [place] Wound care instructions per surgery Dr Olmedo
[2017-12-13] MEDS ORDERED: FLU VACCINE QUAD 60 MCG/0.5 ML (MDV 18-19) IM ONE (13:15)
--- NOTE | 2017-12-13 15:27 | PN ---
Physical Exam: SUBJECTIVE: Patient seen and examined Patient is a poor historian. History obtained from prior notes and chart. 62 yo M w a history of CVA w residual R hemiparesis, HTN, Afib, Anemia, GERD, SBO, BPH came in for elective Fem -Fem R sided bypass surgery by Dr. Cohen. Post surgery patient transfered to ICU for monitoring. He experienced a seizure last night at 7:15 PM which resolved with 1500 Keppra. Today he is sitting comfortably in the bed, eating normally, and looks to be in good spirits. He is still non-verbal. OBJECTIVE: Vital Signs Period Temp Pulse Resp BP Sys/Huitron Pulse Ox Last 24 Hr 98 F-100.4 F 89-167 18-25 140-168/81-104 96-99 GENERAL: Awake, alert, and fully oriented, in no acute distress. HEAD: Normal with no signs of trauma. EYES: Pupils equal, round and reactive to light, extraocular movements intact, sclera anicteric, conjunctiva clear. No lid lag. EARS, NOSE, THROAT: Ears normal, nares patent, oropharynx clear without exudates. Moist mucous membranes. NECK: Normal range of motion, supple without lymphadenopathy, JVD, or masses. LUNGS: Breath sounds equal, clear to auscultation bilaterally. No wheezes, and no crackles. No accessory muscle use. HEART: Tachycardic rate and regular rhythm, normal S1 and S2 without murmur, rub or gallop. ABDOMEN: Soft, nontender, not distended, normoactive bowel sounds, no guarding, no rebound, no masses. No hepatomegaly or splenomegaly. MUSCULOSKELETAL: Normal range of motion at all joints. No bony deformities or tenderness. No CVA tenderness. UPPER EXTREMITIES: 2+ pulses, warm, well-perfused. No cyanosis. No clubbing. Cap refill <2 seconds. No peripheral edema. LOWER EXTREMITIES: 2+ pulses, warm, well-perfused. No peripheral edema. There is significant TTP in the R leg. Motor strength is decreased in R compared to L. Patient has discoloration of b/l shins which appear to be pre-ulcerous in nature. Laboratory Results - last 24 hr 12/12/17 12/12/17 12/12/17 20:45 20:45 20:45 WBC 12.8 H RBC 4.48 Hgb 12.6 Hct 39.6 D MCV 88.5 MCH 28.0 MCHC 31.7 L RDW 12.8 Plt Count 182 D MPV 9.0 Absolute Neuts (auto) 9.8 H Neutrophils % 77.0 D Lymphocytes % 13.3 D Monocytes % 9.7 Eosinophils % 0.0 D Basophils % 0.0 Nucleated RBC % 0 PT with INR 14.00 H INR 1.18 H Sodium 146 H Potassium 4.4 Chloride 112 H Carbon Dioxide 24 Anion Gap 10 BUN 16 Creatinine 1.2 Creat Clearance w eGFR > 60 Random Glucose 148 H Lactic Acid Calcium 8.5 Phosphorus 3.2 Magnesium 1.9 Total Bilirubin 1.4 H Direct Bilirubin AST 354 H ALT 374 H Alkaline Phosphatase 141 H Creatine Kinase Creatine Kinase Index CK-MB (CK-2) Troponin I Total Protein 7.6 Albumin 3.4 TSH 12/12/17 12/12/17 12/13/17 20:45 20:45 00:15 WBC RBC Hgb Hct MCV MCH MCHC RDW Plt Count MPV Absolute Neuts (auto) Neutrophils % Lymphocytes % Monocytes % Eosinophils % Basophils % Nucleated RBC % PT with INR INR Sodium Potassium Chloride Carbon Dioxide Anion Gap BUN Creatinine Creat Clearance w eGFR Random Glucose Lactic Acid 4.6 H* 2.4 H* Calcium Phosphorus Magnesium Total Bilirubin Direct Bilirubin AST ALT Alkaline Phosphatase Creatine Kinase 206 Creatine Kinase Index 0.9 CK-MB (CK-2) 1.9 Troponin I < 0.02 Total Protein Albumin [facility] 12/13/17 12/13/17 12/13/17 05:30 05:30 05:30 WBC 15.1 H RBC 4.52 Hgb 12.6 Hct 40.4 MCV 89.2 MCH 27.8 MCHC 31.2 L RDW 12.6 Plt Count 158 MPV 9.0 Absolute Neuts (auto) 9.0 H Neutrophils % 59.5 D Lymphocytes % 27.2 D Monocytes % 12.5 H Eosinophils % 0.3 D Basophils % 0.5 D Nucleated RBC % 0 PT with INR INR Sodium 143 Potassium 3.9 Chloride 110 H Carbon Dioxide 25 Anion Gap 7 L BUN 14 Creatinine 0.9 Creat Clearance w eGFR > 60 Random Glucose 102 Lactic Acid Calcium 8.7 Phosphorus 2.4 L Magnesium 1.9 Total Bilirubin 1.9 H Cancelled Direct Bilirubin 0.5 H Cancelled AST 192 H Cancelled ALT 306 H Cancelled Alkaline Phosphatase 134 H Cancelled Creatine Kinase Creatine Kinase Index CK-MB (CK-2) Troponin I Total Protein 7.2 Cancelled Albumin 3.4 Cancelled TSH 0.59 12/13/17 05:30 WBC RBC Hgb Hct MCV MCH MCHC RDW Plt Count MPV Absolute Neuts (auto) Neutrophils % Lymphocytes % Monocytes % Eosinophils % Basophils % Nucleated RBC % PT with INR INR Sodium Potassium Chloride Carbon Dioxide Anion Gap BUN Creatinine Creat Clearance w eGFR Random Glucose Lactic Acid 1.7 Calcium Phosphorus Magnesium Total Bilirubin Direct Bilirubin AST ALT Alkaline Phosphatase Creatine Kinase Creatine Kinase Index CK-MB (CK-2) Troponin I Total Protein Albumin TSH Active Medications Generic Name Dose Route Start Last Admin Trade Name Freq PRN Reason Stop Dose Admin Amlodipine Besylate 5 mg 12/13/17 10:00 12/13/17 09:35 Norvasc - PO 5 mg DAILY AMANDA Administration Apixaban 5 mg 12/12/17 15:15 12/13/17 09:35 Eliquis - PO 5 mg BID AMANDA Administration Cyclobenzaprine HCl 5 mg 12/13/17 10:00 12/13/17 09:35 Flexeril - PO 5 mg DAILY AMANDA Administration Finasteride 5 mg 12/13/17 10:00 12/13/17 09:35 Proscar - PO 5 mg DAILY AMANDA Administration Lactated Ringer's 1,000 mls @ 75 mls/hr 12/12/17 12:45 12/12/17 16:03 Lactated Ringers Solution IV 75 mls/hr ASDIR AMANDA Administration Isosorbide Mononitrate 30 mg 12/13/17 10:00 12/13/17 09:35 Imdur - PO 30 mg DAILY AMANDA Administration Levetiracetam 1,500 mg 12/13/17 10:00 12/13/17 09:36 Keppra Xr - PO 1,500 mg BID AMANDA Administration Lisinopril 5 mg 12/13/17 10:00 12/13/17 09:36 Prinivil PO 5 mg DAILY AMANDA Administration Morphine Sulfate 2 mg 12/12/17 17:43 Morphine Sulfate IVPUSH Q6H PRN PAIN LEVEL 7 - 10 Ondansetron HCl 4 mg 12/12/17 12:36 Zofran Injection IVPUSH Q6H PRN NAUSEA AND/OR VOMITING Pantoprazole Sodium 40 mg 12/12/17 17:45 12/13/17 09:35 Protonix - PO 40 mg DAILY AMANDA Administration ASSESSMENT/PLAN: PVD s/p Fem-Fem bypass. Hx of CVA w R sided residual hemiparesis AFIB Anemia GERD BPH Patient experienced a seizure yesterday likely as a result of not taking his daily dose of Keppra. The seizure lasted for about 60 seconds and resolved very quickly to Keppra. His HR elevated to 180 before he seized. he responded well to metoprolol and HR returned to baseline. Today he has a slight fever of 100.4. His WBC is also elevated at 15. - will consult Dr. cohen to see if he wants to start Abx. Plan: Monitor vitals monitor Is and Os Regular pulse check - Pain management with morphine. Continue with keppra Continue with BP meds Lisinopril and amlodipine Continue with Imdur Continue Elliquis for AIF Protonix for GERD Starting on 50 ml/hr on oral clear liquid. +/- Abx Dispo: Patient will continue to be monitored in the ICU. - Recheck vitals Q2H Visit type - Emergency Visit Emergency Visit: Yes ED Registration Date: 12/12/17 Care time: The patient presented to the Emergency Department on the above date and was hospitalized for further evaluation of their emergent condition. - New Patient This patient is new to me today: No - Critical Care Critical Care patient: Yes Total Critical Care Time (in minutes): 36 Critical Care Statement: The care of this patient involved high complexity decision making to prevent further life threatening deterioration of the patient 's condition and/or to evaluate & treat vital organ system(s) failure or risk of failure.
[2017-12-13] MEDS ORDERED: METOPROLOL TARTRATE 5 MG/5 ML VIAL IVPUSH ONE (15:46)
[2017-12-13] MEDS: METOPROLOL TARTRATE 25 MG TABLET (FP) PO SCH (15:58)
[2017-12-13] MEDS ORDERED: SODIUM CHLORIDE 1,000 ML IV SCH ×2 (16:00→18:53)
[2017-12-13] MEDS ORDERED: ACETAMINOPHEN 1000 MG/100 ML VIAL (NON FORMULARY) IVPB ONE (16:00)
--- NOTE | 2017-12-13 16:26 | HP ---
CHIEF COMPLAINT: RLE pain PCP: From [facility] HISTORY OF PRESENT ILLNESS: Pt is a 62 y/o gentleman with PMH CVA (residual R sided weakness, aphasia), AF ( on Eliquis), GERD, HTN, seizures (on Keppra), PVD, anemia, GERD, SBO, and BPH brought from [facility] for elective R Fem-Fem bypass by Dr. oPwell yesterday. Pt was transferred to ICU for recovery and was noted at one point to have seizure- like activity (~1.5min), for which he was given Keppra and which resolved prior to initiation of ativan. F/u Lactic acid was increased and has since resolved. However, pt developed fever, initially 100.4 and now 101.9. Pt has no complaints at this time. ROS negative. Recent Travel: denies PAST MEDICAL HISTORY: as above PAST SURGICAL HISTORY: as above Social History: Smoking: denies Alcohol: denies Drugs: denies Family History: Allergies No Known Allergies Allergy (Verified 12/11/17 14:38) HOME MEDICATIONS: Home Medications Medication Instructions Recorded Amlodipine Besylate [Norvasc -] 5 mg PO DAILY 12/14/12 Aspirin [ASA -] 81 mg PO DAILY 12/14/12 Docusate Sodium [Colace -] 100 mg PO DAILY 12/14/12 Isosorbide Mononitrate [Imdur] 30 mg PO DAILY 12/14/12 Lisinopril [Prinivil -] 5 mg PO DAILY 12/14/12 Metoprolol Tartrate [Lopressor -] 25 mg PO DAILY 12/14/12 Topiramate [Topamax] 50 mg PO BID 12/14/12 levETIRAcetam [Keppra Xr -] 1,500 mg PO BID 12/14/12 Cyclobenzaprine HCl 10 mg PO DAILY 12/11/17 Finasteride 5 mg PO DAILY 12/11/17 Gabapentin 300 mg PO TID 12/11/17 Multivitamin [Daily Multiple 1 each PO DAILY 12/11/17 Vitamin] Ranitidine HCl [Zantac] 200 mg PO DAILY 12/11/17 Rivaroxaban [Xarelto -] DAILY 12/11/17 Tamsulosin HCl 0.4 mg PO DAILY 12/11/17 Warfarin Sodium [Coumadin] PO DAILY 12/11/17 Xalatan 0.005% Eye Drops - 1 drop OU DAILY 12/11/17 REVIEW OF SYSTEMS CONSTITUTIONAL: Absent: fever, chills, diaphoresis, generalized weakness, malaise, loss of appetite, weight change HEENT: Absent: rhinorrhea, nasal congestion, throat pain, throat swelling, difficulty swallowing, mouth swelling, ear pain, eye pain, visual changes CARDIOVASCULAR: Absent: chest pain, syncope, palpitations, irregular heart rate, lightheadedness , peripheral edema RESPIRATORY: Absent: cough, shortness of breath, dyspnea with exertion, orthopnea, wheezing, stridor, hemoptysis GASTROINTESTINAL: Absent: abdominal pain, abdominal distension, nausea, vomiting, diarrhea, constipation, melena, hematochezia GENITOURINARY: Absent: dysuria, frequency, urgency, hesitancy, hematuria, flank pain, genital pain MUSCULOSKELETAL: Absent: myalgia, arthralgia, joint swelling, back pain, neck pain SKIN: Absent: rash, itching, pallor HEMATOLOGIC/IMMUNOLOGIC: Absent: easy bleeding, easy bruising, lymphadenopathy, frequent infections ENDOCRINE: Absent: unexplained weight gain, unexplained weight loss, heat intolerance, cold intolerance NEUROLOGIC: Absent: headache, focal weakness or paresthesias, dizziness, unsteady gait, seizure, mental status changes, bladder or bowel incontinence PSYCHIATRIC: Absent: anxiety, depression, suicidal or homicidal ideation, hallucinations. PHYSICAL EXAMINATION Vital Signs - 24 hr 12/12/17 12/12/17 12/12/17 16:25 16:40 16:50 Temperature 98.9 F Pulse Rate 106 H 104 H 107 H Respiratory 20 20 20 Rate Blood Pressure 142/85 157/89 142/92 O2 Sat by Pulse 99 98 Oximetry (%) 12/12/17 12/12/17 12/12/17 17:05 17:16 19:35 Temperature 98 F Pulse Rate 104 H 167 H Respiratory 18 Rate Blood Pressure 157/104 H 168/99 O2 Sat by Pulse 98 Oximetry (%) 12/12/17 12/12/17 12/13/17 21:00 22:00 00:00 Temperature 98.2 F Pulse Rate 91 H 94 H Respiratory 20 23 H Rate Blood Pressure 152/94 155/83 O2 Sat by Pulse 98 Oximetry (%) 12/13/17 12/13/17 12/13/17 02:00 04:00 08:00 Temperature 98.1 F 99.3 F Pulse Rate 94 H 89 96 H Respiratory 23 H 20 20 Rate Blood Pressure 155/82 148/86 147/83 O2 Sat by Pulse Oximetry (%) 12/13/17 12/13/17 12/13/17 09:00 10:25 12:00 Temperature Pulse Rate 95 H 103 H Respiratory 20 20 25 H Rate Blood Pressure 157/82 143/91 O2 Sat by Pulse 98 Oximetry (%) 12/13/17 14:00 Temperature 100.4 F H Pulse Rate 108 H Respiratory 25 H Rate Blood Pressure 140/81 O2 Sat by Pulse Oximetry (%) Gen: NAD resting comfortably in bed HEENT: NCAT, EOMI Neck: supple, no JVD Cardiac: irregular, normal s1s2, no murmurs rubs or gallops Lungs: limited exam. cta b/l Abd: nondistended, soft, nontender. surgical sites at b/l groin cdi Ext: 2+ pt pulses b/l. 2+ DP pulses b/l Neuro: Residual R facial droop, RUE/RLE weakness 2/5. LUE 5/5, LLE 4/5 Laboratory Results - last 24 hr 12/12/17 12/12/17 12/12/17 20:45 20:45 20:45 WBC 12.8 H RBC 4.48 Hgb 12.6 Hct 39.6 D MCV 88.5 MCH 28.0 MCHC 31.7 L RDW 12.8 Plt Count 182 D MPV 9.0 Absolute Neuts (auto) 9.8 H Neutrophils % 77.0 D Lymphocytes % 13.3 D Monocytes % 9.7 Eosinophils % 0.0 D Basophils % 0.0 Nucleated RBC % 0 PT with INR 14.00 H INR 1.18 H Sodium 146 H Potassium 4.4 Chloride 112 H Carbon Dioxide 24 Anion Gap 10 BUN 16 Creatinine 1.2 Creat Clearance w eGFR > 60 Random Glucose 148 H Lactic Acid Calcium 8.5 Phosphorus 3.2 Magnesium 1.9 Total Bilirubin 1.4 H Direct Bilirubin AST 354 H ALT 374 H Alkaline Phosphatase 141 H Creatine Kinase Creatine Kinase Index CK-MB (CK-2) Troponin I Total Protein 7.6 Albumin 3.4 TSH 12/12/17 12/12/17 12/13/17 20:45 20:45 00:15 WBC RBC Hgb Hct MCV MCH MCHC RDW Plt Count MPV Absolute Neuts (auto) Neutrophils % Lymphocytes % Monocytes % Eosinophils % Basophils % Nucleated RBC % PT with INR INR Sodium Potassium Chloride Carbon Dioxide Anion Gap BUN Creatinine Creat Clearance w eGFR Random Glucose Lactic Acid 4.6 H* 2.4 H* Calcium Phosphorus Magnesium Total Bilirubin Direct Bilirubin AST ALT Alkaline Phosphatase Creatine Kinase 206 Creatine Kinase Index 0.9 CK-MB (CK-2) 1.9 Troponin I < 0.02 Total Protein Albumin TSH 12/13/17 12/13/17 12/13/17 05:30 05:30 05:30 WBC 15.1 H RBC 4.52 Hgb 12.6 Hct 40.4 MCV 89.2 MCH 27.8 MCHC 31.2 L RDW 12.6 Plt Count 158 MPV 9.0 Absolute Neuts (auto) 9.0 H Neutrophils % 59.5 D Lymphocytes % 27.2 D Monocytes % 12.5 H Eosinophils % 0.3 D Basophils % 0.5 D Nucleated RBC % 0 PT with INR INR Sodium 143 Potassium 3.9 Chloride 110 H Carbon Dioxide 25 Anion Gap 7 L BUN 14 Creatinine 0.9 Creat Clearance w eGFR > 60 Random Glucose 102 Lactic Acid Calcium 8.7 Phosphorus 2.4 L Magnesium 1.9 Total Bilirubin 1.9 H Cancelled Direct Bilirubin 0.5 H Cancelled AST 192 H Cancelled ALT 306 H Cancelled Alkaline Phosphatase 134 H Cancelled Creatine Kinase Creatine Kinase Index CK-MB (CK-2) Troponin I Total Protein 7.2 Cancelled Albumin 3.4 Cancelled TSH 0.59 12/13/17 05:30 WBC RBC Hgb Hct MCV MCH MCHC RDW Plt Count MPV Absolute Neuts (auto) Neutrophils % Lymphocytes % Monocytes % Eosinophils % Basophils % Nucleated RBC % PT with INR INR Sodium Potassium Chloride Carbon Dioxide Anion Gap BUN Creatinine Creat Clearance w eGFR Random Glucose Lactic Acid 1.7 Calcium Phosphorus Magnesium Total Bilirubin Direct Bilirubin AST ALT Alkaline Phosphatase Creatine Kinase Creatine Kinase Index CK-MB (CK-2) Troponin I Total Protein Albumin TSH ASSESSMENT/PLAN: Pt is a 62 y/o gentleman with PMH CVA (residual R sided weakness, aphasia), AF ( on Eliquis), GERD, HTN, seizures (on Keppra), PVD, anemia, GERD, SBO, and BPH brought from [facility] for elective R Fem-Fem bypass. Pt is in ICU with post op fever. #Post-op fever / Sepsis -tachycardic (hx afib) -febrile to 101.9 -WBC 15 -asymptomatic -ID consult. Spoke with Dr. Kang -Louis 1 gm -Zosyn 3.375 gm -repeat cbc, cmp, lactic acid -tylenol ordered #Afib -presently with RVR -metoprolol ordered -c/w eliquis #Seizures -c/w keppra #GERD -on protonix #HTN -c/w norvasc and lisinopril #BPH -pt had villanueva for procedure -d/c'ed at this time #FEN -NS @ 75 -lytes wnl -dm diet #ppx -eliquis #Dispo -ICU Sherman Samayoa MD PGY-2 IM Visit type - Emergency Visit Emergency Visit: No - New Patient This patient is new to me today: Yes Date on this admission: 12/13/17 - Critical Care Critical Care patient: Yes Total Critical Care Time (in minutes): 45 Critical Care Statement: The care of this patient involved high complexity decision making to prevent further life threatening deterioration of the patient 's condition and/or to evaluate & treat vital organ system(s) failure or risk of failure.
[2017-12-13] MEDS ORDERED: VANCOMYCIN 1 GRAM (PRE-DOCKED) 1,000 MG/250 ML BAG IVPB ONE (16:30)
[2017-12-13 16:47] LABS: BASO % 0.2 % (0-2.0); EOS % 0.3 % (0-4.5); HEMATOCRIT 38.9 % (35.4-49); HEMOGLOBIN 12.4 GM/dL (11.7-16.9); LYMPH % 17.4 % (8-40); MCH 28.2 pg (25.7-33.7); MCHC 31.8 g/dl (32.0-35.9); MEAN CELL VOLUME 88.7 fl (80-96); MEAN PLT VOLUME 9.3 fl (7.5-11.1); MONO % 11.4 % (3.8-10.2); NEUT % 70.7 % (42.8-82.8); PLATELET COUNT 168 K/MM3 (134-434); RBC 4.39 M/mm3 (4.00-5.60); RDW 12.6 % (11.9-15.9); WHITE BLOOD COUNT 14.2 K/mm3 (4.0-10.0)
[2017-12-13] MEDS ORDERED: DEXTROSE 5%-WATER - 50 ML IVPB ONE (16:47)
[2017-12-13] MEDS ORDERED: PIPERACILLIN/TAZOBACTAM 3.375 GM VIAL IVPB ONE (16:47)
--- NOTE | 2017-12-13 16:47 | PN ---
Progress Note (short form) - Note Progress Note: ID Consult dictated Fever/ leukocytosis s/p seizure R/O aspiration Post op fem-fem bypass Await c/s Empiric zosyn + stat dose vancomycin
[2017-12-13 17:10] LABS: ALBUMIN 3.2 g/dl (3.4-5.0); ALK PHOS 134 U/L (45-117); ANION GAP 10 MMOL/L (8-16); BILIRUBIN,TOTAL 1.6 mg/dL (0.2-1); BLOOD UREA NITROGEN 12 mg/dL (7-18); CALCIUM 8.1 mg/dL (8.5-10.1); CHLORIDE 108 mmol/L (98-107); CO2 24 mmol/L (21-32); CREATININE 0.9 mg/dL (0.55-1.3); GLUCOSE,RANDOM 151 mg/dL (74-106); MAGNESIUM 1.8 mg/dL (1.8-2.4); PHOSPHOROUS 2.3 mg/dL (2.5-4.9); POTASSIUM 3.7 mmol/L (3.5-5.1); SGOT/AST 129 U/L (15-37); SGPT/ALT 252 U/L (13-61); SODIUM 142 mmol/L (136-145)
[2017-12-13 17:13] LABS: INR 1.57 (0.83-1.09); PROTHROMBIN TIME (PATIENT) 18.6 SEC (9.7-13.0)
[2017-12-13] MEDS: LACTATED RINGERS SOLUTION 1,000 ML IV SCH (17:26)
[2017-12-13] MEDS: PIPERACILLIN/TAZOB 3.375 GM 3.375 GM in DEXTROSE 5%-WATER - 50 ML IVPB SCH (17:27)
--- NOTE | 2017-12-13 17:52 | PN ---
Teaching Attending Note Name of Resident: Sherman Samayoa ATTENDING PHYSICIAN STATEMENT I saw and evaluated the patient. I reviewed the resident's note and discussed the case with the resident. I agree with the resident's findings and plan as documented. SUBJECTIVE: Patient has no new complain, has a 100.4 fever. OBJECTIVE: Vital Signs Temperature 100.4 F H 12/13/17 14:00 Pulse Rate 121 H 12/13/17 16:00 Respiratory Rate 31 H 12/13/17 16:00 Blood Pressure 133/86 12/13/17 16:00 O2 Sat by Pulse Oximetry (%) 98 12/13/17 09:00 Gen: NAD resting comfortably in bed, feels little warm HEENT: NCAT, EOMI Neck: supple, no JVD Cardiac: irregular-irregular with a rate of 130's, normal s1s2. Lungs: limited exam. CTA BLl Abd: nondistended, soft, nontender. surgical sites at b/l groin cdi Ext: 2+ pt pulses b/l. 2+ DP pulses b/l Neuro: Residual R facial droop, RUE/RLE weakness 2/5. LUE 5/5, LLE 4/5 CBCD WBC 14.2 K/mm3 (4.0-10.0) H 12/13/17 15:45 RBC 4.39 M/mm3 (4.00-5.60) 12/13/17 15:45 Hgb 12.4 GM/dL (11.7-16.9) 12/13/17 15:45 Hct 38.9 % (35.4-49) 12/13/17 15:45 MCV 88.7 fl (80-96) 12/13/17 15:45 MCHC 31.8 g/dl (32.0-35.9) L 12/13/17 15:45 RDW 12.6 % (11.9-15.9) 12/13/17 15:45 Plt Count 168 K/MM3 (134-434) 12/13/17 15:45 MPV 9.3 fl (7.5-11.1) 12/13/17 15:45 CMP Sodium 142 mmol/L (136-145) 12/13/17 15:45 Potassium 3.7 mmol/L (3.5-5.1) 12/13/17 15:45 Chloride 108 mmol/L (98-107) H 12/13/17 15:45 Carbon Dioxide 24 mmol/L (21-32) 12/13/17 15:45 Anion Gap 10 MMOL/L (8-16) 12/13/17 15:45 BUN 12 mg/dL (7-18) 12/13/17 15:45 Creatinine 0.9 mg/dL (0.55-1.3) 12/13/17 15:45 Creat Clearance w eGFR > 60 (>60) 12/13/17 15:45 Random Glucose 151 mg/dL (74-106) H 12/13/17 15:45 Calcium 8.1 mg/dL (8.5-10.1) L 12/13/17 15:45 Total Bilirubin 1.6 mg/dL (0.2-1) H 12/13/17 15:45 AST 129 U/L (15-37) H 12/13/17 15:45 ALT 252 U/L (13-61) H 12/13/17 15:45 Alkaline Phosphatase 134 U/L (45-117) H 12/13/17 15:45 Total Protein 7.0 g/dl (6.4-8.2) 12/13/17 15:45 Albumin 3.2 g/dl (3.4-5.0) L 12/13/17 15:45 CARDIAC ENZYMES Creatine Kinase 206 IU/L (26-308) 12/12/17 20:45 Troponin I < 0.02 ng/ml (0.00-0.05) 12/12/17 20:45 Current Medications Generic Name Dose Route Start Last Admin Trade Name Hannah PRN Reason Stop Dose Admin Amlodipine Besylate 5 mg 12/13/17 10:00 12/13/17 09:35 Norvasc - PO 5 mg DAILY AMANDA Administration Apixaban 5 mg 12/12/17 15:15 12/13/17 09:35 Eliquis - PO 5 mg BID AMANDA Administration Chlorhexidine Gluconate 1 applic 12/13/17 22:00 Hibiclens For Decolonization - TP HS AMANDA Cyclobenzaprine HCl 5 mg 12/13/17 10:00 12/13/17 09:35 Flexeril - PO 5 mg DAILY AMANDA Administration Finasteride 5 mg 12/13/17 10:00 12/13/17 09:35 Proscar - PO 5 mg DAILY AMANDA Administration Lactated Ringer's 1,000 mls @ 75 mls/hr 12/12/17 12:45 12/13/17 17:26 Lactated Ringers Solution IV Not Given ASDIR AMANDA Sodium Chloride 1,000 mls @ 75 mls/hr 12/13/17 16:00 12/13/17 16:50 Normal Saline - IV 75 mls/hr ASDIR AMANDA Administration Vancomycin HCl 1,000 mg in 250 mls @ 166.667 mls/hr 12/13/17 16:30 12/13/17 16:48 Vancomycin (Pre-Docked) IVPB 12/13/17 17:59 166.667 mls/hr ONCE ONE Administration Protocol Piperacillin Sod/Tazobactam 50 mls @ 100 mls/hr 12/13/17 18:00 12/13/17 17:27 Sod 3.375 gm/ Dextrose IVPB 100 mls/hr Q8H-IV AMANDA Administration Protocol Isosorbide Mononitrate 30 mg 12/13/17 10:00 12/13/17 09:35 Imdur - PO 30 mg DAILY AMANDA Administration Levetiracetam 1,500 mg 12/13/17 10:00 12/13/17 09:36 Keppra Xr - PO 1,500 mg BID AMANDA Administration Lisinopril 5 mg 12/13/17 10:00 12/13/17 09:36 Prinivil PO 5 mg DAILY AMANDA Administration Metoprolol Tartrate 25 mg 12/13/17 16:00 12/13/17 15:58 Lopressor - PO 25 mg DAILY AMANDA Administration Morphine Sulfate 2 mg 12/12/17 17:43 Morphine Sulfate IVPUSH Q6H PRN PAIN LEVEL 7 - 10 Mupirocin 1 applic 12/13/17 22:00 Bactroban Ointment (For Decolonization) - NS 12/18/17 21:59 BID AMANDA Ondansetron HCl 4 mg 12/12/17 12:36 Zofran Injection IVPUSH Q6H PRN NAUSEA AND/OR VOMITING Pantoprazole Sodium 40 mg 12/12/17 17:45 12/13/17 09:35 Protonix - PO 40 mg DAILY AMANDA Administration Home Medications Medication Instructions Recorded Amlodipine Besylate [Norvasc -] 5 mg PO DAILY 12/14/12 Aspirin [ASA -] 81 mg PO DAILY 12/14/12 Docusate Sodium [Colace -] 100 mg PO DAILY 12/14/12 Isosorbide Mononitrate [Imdur] 30 mg PO DAILY 12/14/12 Lisinopril [Prinivil -] 5 mg PO DAILY 12/14/12 Metoprolol Tartrate [Lopressor -] 25 mg PO DAILY 12/14/12 Topiramate [Topamax] 50 mg PO BID 12/14/12 levETIRAcetam [Keppra Xr -] 1,500 mg PO BID 12/14/12 Cyclobenzaprine HCl 10 mg PO DAILY 12/11/17 Finasteride 5 mg PO DAILY 12/11/17 Gabapentin 300 mg PO TID 12/11/17 Multivitamin [Daily Multiple 1 each PO DAILY 12/11/17 Vitamin] Ranitidine HCl [Zantac] 200 mg PO DAILY 12/11/17 Rivaroxaban [Xarelto -] DAILY 12/11/17 Tamsulosin HCl 0.4 mg PO DAILY 12/11/17 Warfarin Sodium [Coumadin] PO DAILY 12/11/17 Xalatan 0.005% Eye Drops - 1 drop OU DAILY 12/11/17 ASSESSMENT AND PLAN: Patient is a 62 y/o male from [facility] with PMHx of CVA (residual R sided weakness, aphasia), AF (on Eliquis), GERD, HTN, seizures (on Keppra), PVD, anemia, GERD, SBO, and BPH brought from [facility] for elective R Fem-Fem bypass. Pt is in ICU with post op fever. #Post-op day #1 with fever and Sepsis now, [place] culture , ID consult , will start empirically Zosyn and Vancomycin #Afib with RVR on Eliquis continue , on Toprol XL will increase the dose . #Hx of seizure continue keppra Xr 1500mg #GERD on protonix #HTN c/w norvasc and lisinopril #BPH on Tamsulosin at home. DVT Px: [facility] ICU
[2017-12-13] MEDS ORDERED: SODIUM CHLORIDE 1,000 ML IV STA (17:54)
[2017-12-13] MEDS ORDERED: PIPERACILLIN/TAZOB 3.375 GM 3.375 GM in DEXTROSE 5%-WATER - 50 ML IVPB SCH (18:00)
[2017-12-13 18:13] LABS: URINE APPEARANCE CLOUDY; URINE BILIRUBIN NEGATIVE (<2.0 mg/dL); URINE COLOR YELLOW; URINE GLUCOSE (UA) NEGATIVE (NEGATIVE); URINE KETONE NEGATIVE (NEGATIVE); URINE LEUK ESTERASE NEGATIVE (NEGATIVE); URINE NITRITE NEGATIVE (NEGATIVE); URINE PROTEIN 1+ (NEGATIVE); URINE UROBILINOGEN 4.0 E.U/dl mg/dL (0.2-1.0)
[2017-12-13 19:10] LABS: EPI CELLS RARE /HPF (FEW); URINE HYALINE CAST 3 /lpf; URINE MUCUS RARE
[2017-12-13] MEDS ORDERED: CHLORHEXIDINE GLUCONATE 4% CLEANSER FOR DECOLONIZATION TP SCH (22:00)
[2017-12-13] MEDS: MUPIROCIN 2% TOPICAL OINTMENT FOR DECOLONIZATION NS SCH (22:08)
[2017-12-14] MEDS ORDERED: PIPERACILLIN/TAZOBACTAM 3.375 GM VIAL IVPB ONE ×3 (00:44→17:05)
[2017-12-14] MEDS ORDERED: DEXTROSE 5%-WATER - 50 ML IVPB ONE ×3 (00:44→17:05)
[2017-12-14] MEDS: PIPERACILLIN/TAZOB 3.375 GM 3.375 GM in DEXTROSE 5%-WATER - 50 ML IVPB SCH ×3 (02:35→17:13)
[2017-12-14 06:14] LABS: BASO % 0.4 % (0-2.0); EOS % 0.4 % (0-4.5); HEMATOCRIT 35.5 % (35.4-49); HEMOGLOBIN 11.2 GM/dL (11.7-16.9); LYMPH % 19.5 % (8-40); MCH 27.8 pg (25.7-33.7); MCHC 31.5 g/dl (32.0-35.9); MEAN CELL VOLUME 88.3 fl (80-96); MEAN PLT VOLUME 9.7 fl (7.5-11.1); MONO % 14.7 % (3.8-10.2); PLATELET COUNT 144 K/MM3 (134-434); RBC 4.02 M/mm3 (4.00-5.60); RDW 12.5 % (11.9-15.9); WHITE BLOOD COUNT 15.2 K/mm3 (4.0-10.0)
[2017-12-14 06:53] LABS: ALBUMIN 2.8 g/dl (3.4-5.0); ALK PHOS 114 U/L (45-117); ANION GAP 6 MMOL/L (8-16); BILIRUBIN,TOTAL 2.2 mg/dL (0.2-1); BLOOD UREA NITROGEN 10 mg/dL (7-18); CALCIUM 7.8 mg/dL (8.5-10.1); CHLORIDE 111 mmol/L (98-107); CO2 23 mmol/L (21-32); CREATININE 0.9 mg/dL (0.55-1.3); GLUCOSE,RANDOM 117 mg/dL (74-106); PHOSPHOROUS 1.6 mg/dL (2.5-4.9); POTASSIUM 3.7 mmol/L (3.5-5.1); SGOT/AST 76 U/L (15-37); SGPT/ALT 176 U/L (13-61); SODIUM 140 mmol/L (136-145); TOT PROT 6.3 g/dl (6.4-8.2)
[2017-12-14] MEDS ORDERED: NAPH,MB-DB/K PH,MBDB POWDER PACKET PO ONE (07:18)
--- NOTE | 2017-12-14 08:14 | PN ---
Progress Note (short form) - Note Progress Note: Vital Signs Temperature 98.4 F 12/14/17 06:00 Pulse Rate 96 H 12/14/17 06:00 Respiratory Rate 24 H 12/14/17 06:00 Blood Pressure 154/89 12/14/17 06:00 O2 Sat by Pulse Oximetry (%) 98 12/13/17 21:00 Gen: NAD resting comfortably in bed, feels little warm HEENT: NCAT, EOMI Neck: supple, no JVD Cardiac: irregular-irregular with a rate of 130's, normal s1s2. Lungs: limited exam. CTA BLl Abd: nondistended, soft, nontender. surgical sites at b/l groin cdi Ext: 2+ pt pulses b/l. 2+ DP pulses b/l Neuro: Residual R facial droop, RUE/RLE weakness 2/5. LUE 5/5, LLE 4/5 CBCD WBC 15.2 K/mm3 (4.0-10.0) H 12/14/17 05:30 RBC 4.02 M/mm3 (4.00-5.60) 12/14/17 05:30 Hgb 11.2 GM/dL (11.7-16.9) L 12/14/17 05:30 Hct 35.5 % (35.4-49) 12/14/17 05:30 MCV 88.3 fl (80-96) 12/14/17 05:30 MCHC 31.5 g/dl (32.0-35.9) L 12/14/17 05:30 RDW 12.5 % (11.9-15.9) 12/14/17 05:30 Plt Count 144 K/MM3 (134-434) 12/14/17 05:30 MPV 9.7 fl (7.5-11.1) 12/14/17 05:30 CMP Sodium 140 mmol/L (136-145) 12/14/17 05:30 Potassium 3.7 mmol/L (3.5-5.1) 12/14/17 05:30 Chloride 111 mmol/L (98-107) H 12/14/17 05:30 Carbon Dioxide 23 mmol/L (21-32) 12/14/17 05:30 Anion Gap 6 MMOL/L (8-16) L 12/14/17 05:30 BUN 10 mg/dL (7-18) 12/14/17 05:30 Creatinine 0.9 mg/dL (0.55-1.3) 12/14/17 05:30 Creat Clearance w eGFR > 60 (>60) 12/14/17 05:30 Random Glucose 117 mg/dL (74-106) H 12/14/17 05:30 Calcium 7.8 mg/dL (8.5-10.1) L 12/14/17 05:30 Total Bilirubin 2.2 mg/dL (0.2-1) H 12/14/17 05:30 AST 76 U/L (15-37) H 12/14/17 05:30 ALT 176 U/L (13-61) H 12/14/17 05:30 Alkaline Phosphatase 114 U/L (45-117) 12/14/17 05:30 Total Protein 6.3 g/dl (6.4-8.2) L 12/14/17 05:30 Albumin 2.8 g/dl (3.4-5.0) L 12/14/17 05:30 CARDIAC ENZYMES Creatine Kinase 206 IU/L (26-308) 12/12/17 20:45 Troponin I < 0.02 ng/ml (0.00-0.05) 12/12/17 20:45 Current Medications Generic Name Dose Route Start Last Admin Trade Name Freq PRN Reason Stop Dose Admin Amlodipine Besylate 5 mg 12/13/17 10:00 12/13/17 09:35 Norvasc - PO 5 mg DAILY AMANDA Administration Apixaban 5 mg 12/12/17 15:15 12/13/17 22:08 Eliquis - PO 5 mg BID AMANDA Administration Chlorhexidine Gluconate 1 applic 12/13/17 22:00 12/13/17 22:08 Hibiclens For Decolonization - TP 1 applic HS AMANDA Administration Cyclobenzaprine HCl 5 mg 12/13/17 10:00 12/13/17 09:35 Flexeril - PO 5 mg DAILY AMANDA Administration Finasteride 5 mg 12/13/17 10:00 12/13/17 09:35 Proscar - PO 5 mg DAILY AMANDA Administration Piperacillin Sod/Tazobactam 50 mls @ 100 mls/hr 12/13/17 18:00 12/14/17 02:35 Sod 3.375 gm/ Dextrose IVPB 100 mls/hr Q8H-IV AMANDA Administration Protocol Sodium Chloride 1,000 mls @ 125 mls/hr 12/13/17 18:53 12/13/17 18:03 Normal Saline - IV 125 mls/hr ASDIR AMANDA Administration Isosorbide Mononitrate 30 mg 12/13/17 10:00 12/13/17 09:35 Imdur - PO 30 mg DAILY AMANDA Administration Levetiracetam 1,500 mg 12/13/17 10:00 12/13/17 22:08 Keppra Xr - PO 1,500 mg BID AMANDA Administration Lisinopril 5 mg 12/13/17 10:00 12/13/17 09:36 Prinivil PO 5 mg DAILY AMANDA Administration Metoprolol Tartrate 25 mg 12/13/17 16:00 12/13/17 15:58 Lopressor - PO 25 mg DAILY AMANDA Administration Morphine Sulfate 2 mg 12/12/17 17:43 Morphine Sulfate IVPUSH Q6H PRN PAIN LEVEL 7 - 10 Mupirocin 1 applic 12/13/17 22:00 12/13/17 22:08 Bactroban Ointment (For Decolonization) - NS 12/18/17 21:59 1 applic BID AMANDA Administration Ondansetron HCl 4 mg 12/12/17 12:36 Zofran Injection IVPUSH Q6H PRN NAUSEA AND/OR VOMITING Pantoprazole Sodium 40 mg 12/12/17 17:45 12/13/17 09:35 Protonix - PO 40 mg DAILY AMANDA Administration Home Medications Medication Instructions Recorded Amlodipine Besylate [Norvasc -] 5 mg PO DAILY 12/14/12 Aspirin [ASA -] 81 mg PO DAILY 12/14/12 Docusate Sodium [Colace -] 100 mg PO DAILY 12/14/12 Isosorbide Mononitrate [Imdur] 30 mg PO DAILY 12/14/12 Lisinopril [Prinivil -] 5 mg PO DAILY 12/14/12 Metoprolol Tartrate [Lopressor -] 25 mg PO DAILY 12/14/12 Topiramate [Topamax] 50 mg PO BID 12/14/12 levETIRAcetam [Keppra Xr -] 1,500 mg PO BID 12/14/12 Cyclobenzaprine HCl 10 mg PO DAILY 12/11/17 Finasteride 5 mg PO DAILY 12/11/17 Gabapentin 300 mg PO TID 12/11/17 Multivitamin [Daily Multiple 1 each PO DAILY 12/11/17 Vitamin] Ranitidine HCl [Zantac] 200 mg PO DAILY 12/11/17 Rivaroxaban [Xarelto -] DAILY 12/11/17 Tamsulosin HCl 0.4 mg PO DAILY 12/11/17 Warfarin Sodium [Coumadin] PO DAILY 12/11/17 Xalatan 0.005% Eye Drops - 1 drop OU DAILY 12/11/17 ASSESSMENT AND PLAN: Patient is a 62 y/o male from [facility] with PMHx of CVA (residual R sided weakness, aphasia), AF (on Eliquis), GERD, HTN, seizures (on Keppra), PVD, anemia, GERD, SBO, and BPH brought from [facility] for elective R Fem-Fem bypass. Pt is in ICU with post op fever. #Post-op day #1 with fever and Sepsis now, [place] culture , ID consult , will start empirically Zosyn and Vancomycin #Afib with RVR on Eliquis continue , on Toprol XL will increase the dose . #Hx of seizure continue keppra Xr 1500mg #GERD on protonix #HTN c/w norvasc and lisinopril #BPH on Tamsulosin at home. DVT Px: [facility] ICU
--- NOTE | 2017-12-14 09:21 | CONS ---
DATE OF CONSULTATION: DATE OF DICTATION: 12/14/2017 HISTORY: The patient is a 62-year-old male who was evaluated for fever and leukocytosis. He was admitted to the hospital on December 12, 2017 with complaints of right lower extremity pain. He was found on CT angiogram to have occluded right common internal and external iliac arteries. The patient underwent a femoral-femoral bypass procedure on December 12, 2017. His postoperative course was complicated by fever. He has now developed a temperature of over 101. At the present time, he is awake and alert. He offers no complaints. No reports of labored breathing, cough, sputum production, vomiting, diarrhea, or grossly purulent urine. PAST MEDICAL HISTORY: Positive for stroke, atrial fibrillation, gastroesophageal reflux, BPH. ALLERGIES: No known allergies. MEDICATIONS: Norvasc, aspirin, Colace, Imdur, lisinopril, Lopressor, Topamax, Keppra, Neurontin. LABORATORY DATA: White count 15.1, hematocrit 40.4, platelets 158, creatinine 0.9. Lactic acid 2.4, total bilirubin 0.5, alkaline phosphatase 134, AST 192. Chest x-ray shows no acute infiltrate. PHYSICAL EXAMINATION: General: He is awake and alert. He is not acutely toxic appearing. Vital Signs: Temperature 100.4, blood pressure 140/81, pulse 108 and regular, respirations 24 per minute. HEENT: Sclerae anicteric. Heart: Sounds S1, S2. Lungs: Grossly clear. Abdomen: Soft and nontender. Surgical wounds present in the groins bilaterally. Extremities: Have 1+ edema. IMPRESSION: 1. Fever, leukocytosis, rule out aspiration pneumonia status post seizure. 2. Postoperative femoral-femoral bypass. PLAN: Await cultures. Empiric antibiotic coverage for possible aspiration pneumonia with Zosyn and STAT dose of vancomycin. We will follow. Thank you for the kind referral. SHAY DUNBAR M.D. [id number]
[2017-12-14] MEDS: APIXABAN 5 MG TABLET PO SCH ×2 (09:45→21:41)
[2017-12-14] MEDS: amLODIPine BESYLATE 5 MG TABLET (FP) PO SCH (09:45)
[2017-12-14] MEDS: CYCLOBENZAPRINE HCL 10 MG TABLET (FP) PO SCH (09:45)
[2017-12-14] MEDS: ISOSORBIDE MONONITRATE 30 MG TAB.SR.24H (FP) PO SCH (09:52)
[2017-12-14] MEDS: LISINOPRIL 5 MG TABLET (FP) PO SCH (09:52)
[2017-12-14] MEDS: PANTOPRAZOLE 40 MG TABLET (FP) PO SCH (09:53)
[2017-12-14] MEDS: FINASTERIDE 5 MG TABLET (FP) PO SCH (10:09)
[2017-12-14] MEDS: levETIRAcetam XR 500 MG TAB PO SCH ×2 (10:11→21:41)
[2017-12-14] MEDS: MUPIROCIN 2% TOPICAL OINTMENT FOR DECOLONIZATION NS SCH (10:13)
--- NOTE | 2017-12-14 10:59 | PN ---
Progress Note, Physician History of Present Illness: Awake, alert Offers no complaints Breathing non-labored Low grade temp noted WBC remains elevated - Current Medication List Current Medications: Active Medications Amlodipine Besylate (Norvasc -) 5 mg PO DAILY [facility] Last Admin: 12/14/17 09:45 Dose: 5 mg Apixaban (Eliquis -) 5 mg PO BID [facility] Last Admin: 12/14/17 09:45 Dose: 5 mg Chlorhexidine Gluconate (Hibiclens For Decolonization -) 1 applic TP HS [facility] Last Admin: 12/13/17 22:08 Dose: 1 applic Cyclobenzaprine HCl (Flexeril -) 5 mg PO DAILY [facility] Last Admin: 12/14/17 09:45 Dose: 5 mg Finasteride (Proscar -) 5 mg PO DAILY [facility] Last Admin: 12/14/17 10:09 Dose: 5 mg Piperacillin Sod/Tazobactam (Sod 3.375 gm/ Dextrose) 50 mls @ 100 mls/hr IVPB Q8H-IV AMANDA; Protocol Last Admin: 12/14/17 09:44 Dose: 100 mls/hr Sodium Chloride (Normal Saline -) 1,000 mls @ 125 mls/hr IV ASDIR [facility] Last Admin: 12/13/17 18:03 Dose: 125 mls/hr Isosorbide Mononitrate (Imdur -) 30 mg PO DAILY [facility] Last Admin: 12/14/17 09:52 Dose: 30 mg Levetiracetam (Keppra Xr -) 1,500 mg PO BID [facility] Last Admin: 12/14/17 10:11 Dose: 1,500 mg Lisinopril (Prinivil) 5 mg PO DAILY [facility] Last Admin: 12/14/17 09:52 Dose: 5 mg Metoprolol Tartrate (Lopressor -) 25 mg PO DAILY [facility] Last Admin: 12/13/17 15:58 Dose: 25 mg Morphine Sulfate (Morphine Sulfate) 2 mg IVPUSH Q6H PRN PRN Reason: PAIN LEVEL 7 - 10 Mupirocin (Bactroban Ointment (For Decolonization) -) 1 applic NS BID [facility] Stop: 12/18/17 21:59 Last Admin: 12/14/17 10:13 Dose: 1 applic Ondansetron HCl (Zofran Injection) 4 mg IVPUSH Q6H PRN PRN Reason: NAUSEA AND/OR VOMITING Pantoprazole Sodium (Protonix -) 40 mg PO DAILY AMANDA Last Admin: 12/14/17 09:53 Dose: 40 mg - Objective Vital Signs: Vital Signs Temperature 99.8 F H 12/14/17 10:00 Pulse Rate 106 H 12/14/17 10:00 Respiratory Rate 23 H 12/14/17 10:00 Blood Pressure 149/80 12/14/17 10:00 O2 Sat by Pulse Oximetry (%) 98 12/14/17 09:00 Constitutional: Yes: No Distress Eyes: Yes: Conjunctiva Clear Cardiovascular: Yes: Regular Rate and Rhythm, S1, S2 Respiratory: Yes: Diminished Gastrointestinal: Yes: Normal Bowel Sounds, Soft. No: Tenderness Edema: Yes Integumentary: Yes: Other (surgical dressings in palce, groin) Labs: CBC, BMP 12/14/17 05:30 12/14/17 05:30 INR, PTT INR 1.57 (0.83-1.09) H 12/13/17 15:45 Assessment/Plan Possible aspiration pneumonia s/p seizure Post op fem-fem bypass Await c/s Continue empiric zosyn
--- NOTE | 2017-12-14 11:30 | PN ---
Teaching Attending Note Name of Resident: Sun Tripathi ATTENDING PHYSICIAN STATEMENT I saw and evaluated the patient. I reviewed the resident's note and discussed the case with the resident. I agree with the resident's findings and plan as documented. SUBJECTIVE: Pt seen and examined in the ICU. No further fevers. Denies cough, shortness of breath. No diarrhea. Pain controlled. OBJECTIVE: Vital Signs Period Temp Pulse Resp BP Sys/Huitron Pulse Ox Last 24 Hr 98.4 F-100.4 F 94-121 22-31 129-156/75-91 98-98 Gen: NAD at rest Heart: RRR Lung: decreased breath sounds at the bases Abd: soft, nontender Ext: warm, +DP, dressings dry CBC, BMP 12/14/17 05:30 12/14/17 05:30 Active Medications Amlodipine Besylate (Norvasc -) 5 mg PO DAILY [facility] Last Admin: 12/14/17 09:45 Dose: 5 mg Apixaban (Eliquis -) 5 mg PO BID [facility] Last Admin: 12/14/17 09:45 Dose: 5 mg Chlorhexidine Gluconate (Hibiclens For Decolonization -) 1 applic TP HS [facility] Last Admin: 12/13/17 22:08 Dose: 1 applic Cyclobenzaprine HCl (Flexeril -) 5 mg PO DAILY [facility] Last Admin: 12/14/17 09:45 Dose: 5 mg Finasteride (Proscar -) 5 mg PO DAILY [facility] Last Admin: 12/14/17 10:09 Dose: 5 mg Piperacillin Sod/Tazobactam (Sod 3.375 gm/ Dextrose) 50 mls @ 100 mls/hr IVPB Q8H-IV AMANDA; Protocol Last Admin: 12/14/17 09:44 Dose: 100 mls/hr Sodium Chloride (Normal Saline -) 1,000 mls @ 125 mls/hr IV ASDIR [facility] Last Admin: 12/13/17 18:03 Dose: 125 mls/hr Isosorbide Mononitrate (Imdur -) 30 mg PO DAILY [facility] Last Admin: 12/14/17 09:52 Dose: 30 mg Levetiracetam (Keppra Xr -) 1,500 mg PO BID [facility] Last Admin: 12/14/17 10:11 Dose: 1,500 mg Lisinopril (Prinivil) 5 mg PO DAILY [facility] Last Admin: 12/14/17 09:52 Dose: 5 mg Metoprolol Tartrate (Lopressor -) 25 mg PO DAILY [facility] Last Admin: 12/13/17 15:58 Dose: 25 mg Morphine Sulfate (Morphine Sulfate) 2 mg IVPUSH Q6H PRN PRN Reason: PAIN LEVEL 7 - 10 Mupirocin (Bactroban Ointment (For Decolonization) -) 1 applic NS BID [facility] Stop: 12/18/17 21:59 Last Admin: 12/14/17 10:13 Dose: 1 applic Ondansetron HCl (Zofran Injection) 4 mg IVPUSH Q6H PRN PRN Reason: NAUSEA AND/OR VOMITING Pantoprazole Sodium (Protonix -) 40 mg PO DAILY [facility] Last Admin: 12/14/17 09:53 Dose: 40 mg ASSESSMENT AND PLAN: PAD s/p R Fem-Fem Bypass Post op Fever Atrial Fibrillation HTN GERD BPH Seizure Disorder h/o CVA - empiric antibiotics per ID - f/u cultures - rate control - continue anticoagulation - pain control - O2 as needed - can monitor on floor
[2017-12-14] MEDS ORDERED: MORPHINE SULFATE 2 MG/ML VIAL IVPUSH PRN (13:27)
[2017-12-14] MEDS ORDERED: LORazepam 2 MG/ML SDV VIAL IVPUSH ONE (13:27)
[2017-12-14] MEDS ORDERED: ONDANSETRON 4 MG/2 ML VIAL IVPUSH PRN (13:27)
--- NOTE | 2017-12-14 13:50 | PN ---
Physical Exam: SUBJECTIVE: Patient seen and examined. Offers no complaints. No acute events overnight. Afebrile BP stable. OBJECTIVE: Vital Signs Period Temp Pulse Resp BP Sys/Huitron Pulse Ox Last 24 Hr 98.4 F-100.4 F 94-121 22-31 129-160/75-89 98-98 GENERAL: The patient is awake, alert, and fully oriented, in no acute distress. EYES:extraocular movements intact, sclera anicteric ENT: moist mucous membranes. NECK: supple. LUNGS: decreased bs, clear to auscultation bilaterally HEART:irregular rhythm ABDOMEN: Soft, nontender, nondistended, normoactive bowel sounds EXTREMITIES: 2+ pulses throughout , no edema Laboratory Results - last 24 hr 12/13/17 12/13/17 12/13/17 15:41 15:45 15:45 WBC 14.2 H RBC 4.39 Hgb 12.4 Hct 38.9 MCV 88.7 MCH 28.2 MCHC 31.8 L RDW 12.6 Plt Count 168 MPV 9.3 Absolute Neuts (auto) 10.0 H Neutrophils % 70.7 Lymphocytes % 17.4 D Monocytes % 11.4 H Eosinophils % 0.3 Basophils % 0.2 Nucleated RBC % 0 PT with INR INR Sodium 142 Potassium 3.7 Chloride 108 H Carbon Dioxide 24 Anion Gap 10 BUN 12 Creatinine 0.9 Creat Clearance w eGFR > 60 POC Glucometer Random Glucose 151 H Lactic Acid Calcium 8.1 L Phosphorus 2.3 L Magnesium 1.8 Total Bilirubin 1.6 H AST 129 H ALT 252 H Alkaline Phosphatase 134 H Total Protein 7.0 Albumin 3.2 L Urine Color Yellow Urine Appearance Cloudy Urine pH 7.0 Ur Specific [place] 1.014 Urine Protein 1+ H Urine Glucose (UA) Negative Urine Ketones Negative Urine Blood 3+ H Urine Nitrite Negative Urine Bilirubin Negative Urine Urobilinogen 4.0 e.u/dl Ur Leukocyte Esterase Negative Urine WBC (Auto) None Urine RBC (Auto) 78 Ur Epithelial Cells Rare Hyaline Casts 3 Urine Mucus Rare 12/13/17 12/13/17 12/13/17 15:45 15:45 17:59 WBC RBC Hgb Hct MCV MCH MCHC RDW Plt Count MPV Absolute Neuts (auto) Neutrophils % Lymphocytes % Monocytes % Eosinophils % Basophils % Nucleated RBC % PT with INR 18.60 H INR 1.57 H Sodium Potassium Chloride Carbon Dioxide Anion Gap BUN Creatinine Creat Clearance w eGFR POC Glucometer [phone] Random Glucose Lactic Acid 3.2 H* Calcium Phosphorus Magnesium Total Bilirubin AST ALT Alkaline Phosphatase Total Protein Albumin Urine Color Urine Appearance Urine pH Ur Specific [place] Urine Protein Urine Glucose (UA) Urine Ketones Urine Blood Urine Nitrite Urine Bilirubin Urine Urobilinogen Ur Leukocyte Esterase Urine WBC (Auto) Urine RBC (Auto) Ur Epithelial Cells Hyaline Casts Urine Mucus 12/13/17 12/14/17 12/14/17 21:00 05:30 05:30 WBC 15.2 H RBC 4.02 Hgb 11.2 L Hct 35.5 MCV 88.3 MCH 27.8 MCHC 31.5 L RDW 12.5 Plt Count 144 MPV 9.7 Absolute Neuts (auto) 9.9 H Neutrophils % 65.0 Lymphocytes % 19.5 Monocytes % 14.7 H Eosinophils % 0.4 Basophils % 0.4 Nucleated RBC % 0 PT with INR INR Sodium 140 Potassium 3.7 Chloride 111 H Carbon Dioxide 23 Anion Gap 6 L BUN 10 Creatinine 0.9 Creat Clearance w eGFR > 60 POC Glucometer Random Glucose 117 H Lactic Acid 2.1 H Calcium 7.8 L Phosphorus 1.6 L Magnesium 2.0 Total Bilirubin 2.2 H AST 76 H ALT 176 H Alkaline Phosphatase 114 Total Protein 6.3 L Albumin 2.8 L Urine Color Urine Appearance Urine pH Ur Specific [place] Urine Protein Urine Glucose (UA) Urine Ketones Urine Blood Urine Nitrite Urine Bilirubin Urine Urobilinogen Ur Leukocyte Esterase Urine WBC (Auto) Urine RBC (Auto) Ur Epithelial Cells Hyaline Casts Urine Mucus 12/14/17 05:30 WBC RBC Hgb Hct MCV MCH MCHC RDW Plt Count MPV Absolute Neuts (auto) Neutrophils % Lymphocytes % Monocytes % Eosinophils % Basophils % Nucleated RBC % PT with INR INR Sodium Potassium Chloride Carbon Dioxide Anion Gap BUN Creatinine Creat Clearance w eGFR POC Glucometer Random Glucose Lactic Acid 0.8 Calcium Phosphorus Magnesium Total Bilirubin AST ALT Alkaline Phosphatase Total Protein Albumin Urine Color Urine Appearance Urine pH Ur Specific [place] Urine Protein Urine Glucose (UA) Urine Ketones Urine Blood Urine Nitrite Urine Bilirubin Urine Urobilinogen Ur Leukocyte Esterase Urine WBC (Auto) Urine RBC (Auto) Ur Epithelial Cells Hyaline Casts Urine Mucus Active Medications Generic Name Dose Route Start Last Admin Trade Name Freq PRN Reason Stop Dose Admin Amlodipine Besylate 5 mg 12/15/17 10:00 Norvasc - PO DAILY [facility] Apixaban 5 mg 12/14/17 22:00 Eliquis - PO BID [facility] Chlorhexidine Gluconate 1 applic 12/14/17 22:00 Hibiclens For Decolonization - TP HS [facility] Cyclobenzaprine HCl 5 mg 12/15/17 10:00 Flexeril - PO DAILY [facility] Finasteride 5 mg 12/15/17 10:00 Proscar - PO DAILY [facility] Sodium Chloride 1,000 mls @ 125 mls/hr 12/14/17 13:27 Normal Saline - IV ASDIR AMANDA Piperacillin Sod/Tazobactam 50 mls @ 100 mls/hr 12/14/17 18:00 Sod 3.375 gm/ Dextrose IVPB Q8H-IV [facility] Protocol Isosorbide Mononitrate 30 mg 12/15/17 10:00 Imdur - PO DAILY [facility] Levetiracetam 1,500 mg 12/14/17 22:00 Keppra Xr - PO BID [facility] Lisinopril 5 mg 12/15/17 10:00 Prinivil PO DAILY [facility] Metoprolol Tartrate 25 mg 12/15/17 10:00 Lopressor - PO DAILY [facility] Morphine Sulfate 2 mg 12/14/17 13:27 Morphine Sulfate IVPUSH Q6H PRN PAIN LEVEL 7 - 10 Mupirocin 1 applic 12/14/17 22:00 Bactroban Ointment (For Decolonization) - NS 12/19/17 21:59 BID [facility] Ondansetron HCl 4 mg 12/14/17 13:27 Zofran Injection IVPUSH Q6H PRN NAUSEA AND/OR VOMITING Pantoprazole Sodium 40 mg 12/15/17 10:00 Protonix - PO DAILY [facility] ASSESSMENT/PLAN: CV -PAD s/p Fem-fem bypass POD 2- pain control -BP stable -A-fib on eliquis, metoprolol for rate control -HTN- lisinopril, norvasc ID -post-op fever. -currently afebrile -fu cx -iv abx -iv fluids #Neuro -hx of seizures -cont. keppra #GI -gerd, on protonix #FEN -ns@ 125 -monitor -Diabetic diet PPx -eliquis Transfer to [facility] surge Visit type - Emergency Visit Emergency Visit: Yes ED Registration Date: 12/12/17 Care time: The patient presented to the Emergency Department on the above date and was hospitalized for further evaluation of their emergent condition. - New Patient This patient is new to me today: Yes Date on this admission: 12/14/17 - Critical Care Critical Care patient: Yes Total Critical Care Time (in minutes): 40 Critical Care Statement: The care of this patient involved high complexity decision making to prevent further life threatening deterioration of the patient 's condition and/or to evaluate & treat vital organ system(s) failure or risk of failure.
[2017-12-14] MEDS: SODIUM CHLORIDE 1,000 ML IV SCH (14:49)
--- NOTE | 2017-12-14 14:50 | EKG ---
Test Reason : Blood Pressure : / mmHG Vent. Rate : 097 BPM Atrial Rate : 097 BPM P-R Int : 180 ms QRS Dur : 074 ms QT Int : 362 ms P-R-T Axes : 052 022 043 degrees QTc Int : 459 ms NORMAL SINUS RHYTHM SEPTAL INFARCT , AGE UNDETERMINED ABNORMAL ECG WHEN COMPARED WITH ECG OF 16-AUG-2000 07:20, SEPTAL INFARCT IS NOW PRESENT Confirmed by MD Maggie, Mehdi ([id number]) on 12/14/2017 2:50:11 PM Referred By: Confirmed By:Mehdi Serrano MD
[2017-12-14] MEDS: METOPROLOL TARTRATE 25 MG TABLET (FP) PO SCH (17:16)
[2017-12-14] MEDS ORDERED: ACETAMINOPHEN 325 MG TABLET (FP) PO ONE (20:00)
[2017-12-14] MEDS ORDERED: PT OWN MED DRAWER 7, Y5N ONE (21:16)
[2017-12-14] MEDS: CHLORHEXIDINE GLUCONATE 4% CLEANSER FOR DECOLONIZATION TP SCH (21:43)
[2017-12-14] MEDS ORDERED: MUPIROCIN 2% TOPICAL OINTMENT FOR DECOLONIZATION NS SCH ×2 (22:00)
[2017-12-15] MEDS ORDERED: PIPERACILLIN/TAZOBACTAM 3.375 GM VIAL IVPB ONE ×3 (02:40→17:38)
[2017-12-15] MEDS ORDERED: DEXTROSE 5%-WATER - 50 ML IVPB ONE ×3 (02:40→17:40)
[2017-12-15] MEDS: SODIUM CHLORIDE 1,000 ML IV SCH ×3 (02:45→21:23)
[2017-12-15] MEDS: PIPERACILLIN/TAZOB 3.375 GM 3.375 GM in DEXTROSE 5%-WATER - 50 ML IVPB SCH ×3 (02:46→17:42)
[2017-12-15] MEDS ORDERED: METOPROLOL TARTRATE 25 MG TABLET (FP) PO SCH (10:00)
[2017-12-15] MEDS ORDERED: amLODIPine BESYLATE 5 MG TABLET (FP) PO SCH (10:00)
[2017-12-15] MEDS ORDERED: PT OWN MED DRAWER 7, Y5N ONE ×2 (10:09→21:06)
[2017-12-15] MEDS: PANTOPRAZOLE 40 MG TABLET (FP) PO SCH (10:12)
[2017-12-15] MEDS: LISINOPRIL 5 MG TABLET (FP) PO SCH (10:12)
[2017-12-15] MEDS: CYCLOBENZAPRINE HCL 10 MG TABLET (FP) PO SCH (10:13)
[2017-12-15] MEDS: FINASTERIDE 5 MG TABLET (FP) PO SCH (10:13)
[2017-12-15] MEDS: levETIRAcetam XR 500 MG TAB PO SCH ×2 (10:14→21:26)
[2017-12-15] MEDS: APIXABAN 5 MG TABLET PO SCH ×2 (10:14→21:25)
[2017-12-15] MEDS: ISOSORBIDE MONONITRATE 30 MG TAB.SR.24H (FP) PO SCH (10:14)
--- NOTE | 2017-12-15 12:09 | PN ---
Progress Note (short form) - Note Progress Note: pt seen/ examined. Transferred under my care as pt is from [facility] chart reviewed pod # 2 Awake/ Comfortable. Low grade temp Pt denies pain Vital Signs Temp 99.7 F H 12/15/17 09:00 Pulse 105 H 12/15/17 09:00 Resp 20 12/15/17 09:00 BP 123/74 12/15/17 09:00 Pulse Ox 95 12/14/17 21:00 Intake & Output 12/14/17 12/15/17 12/15/17 23:59 11:59 23:59 Intake Total 350 50 Balance 350 50 Weight 200 lb 3 oz Intake: IV 100 Normal Saline - 1,000 ml 100 @ 125 mls/hr IV ASDIR AMANDA Rx#:[id number] IVPB 50 Oral 250 Other: Voiding Method Incontinent Incontinent # Unmeasured Voids Void 2 3 Bowel Movement Yes No # Bowel Movements 1 Weight Measurement Method Built in [facility] CBC, BMP 12/14/17 05:30 12/14/17 05:30 Microbiology 12/13/17 16:30 Blood Culture - Preliminary Blood - Peripheral Venous NO GROWTH OBTAINED AFTER 24 HOURS, INCUBATION TO CONTINUE FOR 4 DAYS. 12/13/17 15:45 Blood Culture - Preliminary Blood - Peripheral Venous NO GROWTH OBTAINED AFTER 24 HOURS, INCUBATION TO CONTINUE FOR 4 DAYS. Physical Exam. Awake/ comfortable heent- no jvd Lungs- clear cvs- s1, s2 Irregular abd - soft ext- no edema neuro- Aphasic / right side weakness A/P PAD s/p R Fem-Fem Bypass Pod # 2 Atrial Fibrillation HTN Seizure Disorder h/o CVA Post op fever. elevated Lfts Clinically stable abx f/u cultures Pain under control Physical therapy Will consult cardiology also--post op f/u Monitor lfts No statins for now - till lfts normalized will follow discussed with Nursing staff also Discussed with Dr. Szymanski also -- will follow Problem List - Problems (1) CVA, old, aphasia Code(s): I69.320 - APHASIA FOLLOWING CEREBRAL INFARCTION (2) Elevated liver enzymes Code(s): R74.8 - ABNORMAL LEVELS OF OTHER SERUM ENZYMES (3) Status post femorofemoral bypass surgery Code(s): Z95.828 - PRESENCE OF OTHER VASCULAR IMPLANTS AND GRAFTS (4) Atherosclerosis of right lower extremity with rest pain Code(s): I70.221 - ATHSCL CHER-[place] ARTERIES OF EXTREMITIES W REST PAIN, RIGHT LEG
--- NOTE | 2017-12-15 12:23 | PN ---
Progress Note (short form) - Note Progress Note: PULMONARY Denies shortness of breath, cough or wheezing. Febrile overnight. Vital Signs Period Temp Pulse Resp BP Sys/Huitron Pulse Ox Last 24 Hr 98.4 F-101.9 F 98-129 20-28 123-142/65-78 95-95 Gen: NAD at rest Heart: RRR Lung: decreased breath sounds at the bases Abd: soft, nontender Ext: no edema CBC, BMP 12/14/17 05:30 12/14/17 05:30 Active Medications Amlodipine Besylate (Norvasc -) 5 mg PO DAILY [facility] Last Admin: 12/15/17 10:13 Dose: 5 mg Apixaban (Eliquis -) 5 mg PO BID [facility] Last Admin: 12/15/17 10:14 Dose: 5 mg Chlorhexidine Gluconate (Hibiclens For Decolonization -) 1 applic TP HS [facility] Last Admin: 12/14/17 21:43 Dose: Not Given Cyclobenzaprine HCl (Flexeril -) 5 mg PO DAILY [facility] Last Admin: 12/15/17 10:13 Dose: 5 mg Finasteride (Proscar -) 5 mg PO DAILY [facility] Last Admin: 12/15/17 10:13 Dose: 5 mg Sodium Chloride (Normal Saline -) 1,000 mls @ 125 mls/hr IV [facility] Last Admin: 12/15/17 10:32 Dose: 125 mls/hr Piperacillin Sod/Tazobactam (Sod 3.375 gm/ Dextrose) 50 mls @ 100 mls/hr IVPB Q8H-IV AMANDA; Protocol Last Admin: 12/15/17 10:17 Dose: 100 mls/hr Isosorbide Mononitrate (Imdur -) 30 mg PO DAILY [facility] Last Admin: 12/15/17 10:14 Dose: 30 mg Levetiracetam (Keppra Xr -) 1,500 mg PO BID [facility] Last Admin: 12/15/17 10:14 Dose: 1,500 mg Lisinopril (Prinivil) 5 mg PO DAILY [facility] Last Admin: 12/15/17 10:12 Dose: 5 mg Metoprolol Tartrate (Lopressor -) 25 mg PO DAILY [facility] Last Admin: 12/15/17 10:13 Dose: 25 mg Morphine Sulfate (Morphine Sulfate) 2 mg IVPUSH Q6H PRN PRN Reason: PAIN LEVEL 7 - 10 Last Admin: 12/14/17 17:35 Dose: 2 mg Ondansetron HCl (Zofran Injection) 4 mg IVPUSH Q6H PRN PRN Reason: NAUSEA AND/OR VOMITING Pantoprazole Sodium (Protonix -) 40 mg PO DAILY AMANDA Last Admin: 12/15/17 10:12 Dose: 40 mg A/P PAD s/p R Fem-Fem Bypass Post op Fever Atrial Fibrillation HTN GERD BPH Seizure Disorder h/o CVA - empiric antibiotics per ID - f/u cultures - rate control - continue anticoagulation - pain control - O2 as needed
--- NOTE | 2017-12-15 13:03 | PN ---
Progress Note (short form) - Note Progress Note: Chief Complaint: Events noted, notes reviewed, non communicative, no distress History of Present Illness: Seen and examined. Consult dictated Medications: Current Medications Amlodipine Besylate (Norvasc -) 5 mg PO DAILY [facility] Last Admin: 12/15/17 10:13 Dose: 5 mg Apixaban (Eliquis -) 5 mg PO BID [facility] Last Admin: 12/15/17 10:14 Dose: 5 mg Chlorhexidine Gluconate (Hibiclens For Decolonization -) 1 applic TP HS [facility] Last Admin: 12/14/17 21:43 Dose: Not Given Cyclobenzaprine HCl (Flexeril -) 5 mg PO DAILY [facility] Last Admin: 12/15/17 10:13 Dose: 5 mg Finasteride (Proscar -) 5 mg PO DAILY [facility] Last Admin: 12/15/17 10:13 Dose: 5 mg Sodium Chloride (Normal Saline -) 1,000 mls @ 125 mls/hr IV [facility] Last Admin: 12/15/17 10:32 Dose: 125 mls/hr Piperacillin Sod/Tazobactam (Sod 3.375 gm/ Dextrose) 50 mls @ 100 mls/hr IVPB Q8H-IV AMANDA; Protocol Last Admin: 12/15/17 10:17 Dose: 100 mls/hr Isosorbide Mononitrate (Imdur -) 30 mg PO DAILY [facility] Last Admin: 12/15/17 10:14 Dose: 30 mg Levetiracetam (Keppra Xr -) 1,500 mg PO BID [facility] Last Admin: 12/15/17 10:14 Dose: 1,500 mg Lisinopril (Prinivil) 5 mg PO DAILY [facility] Last Admin: 12/15/17 10:12 Dose: 5 mg Metoprolol Tartrate (Lopressor -) 25 mg PO DAILY [facility] Last Admin: 12/15/17 10:13 Dose: 25 mg Morphine Sulfate (Morphine Sulfate) 2 mg IVPUSH Q6H PRN PRN Reason: PAIN LEVEL 7 - 10 Last Admin: 12/14/17 17:35 Dose: 2 mg Ondansetron HCl (Zofran Injection) 4 mg IVPUSH Q6H PRN PRN Reason: NAUSEA AND/OR VOMITING Pantoprazole Sodium (Protonix -) 40 mg PO DAILY [facility] Last Admin: 12/15/17 10:12 Dose: 40 mg Vital Signs: Last Vital Signs Temp Pulse Resp BP Pulse Ox 99.7 F H 105 H 20 123/74 95 12/15/17 09:00 12/15/17 09:00 12/15/17 09:00 12/15/17 09:00 12/15/17 09:00 Intake & Output 12/12/17 12/13/17 12/14/17 12/15/17 23:59 23:59 23:59 23:59 Intake Total 1375 2900 1225 50 Output Total 2600 1550 Balance -1225 1350 1225 50 Weight 202 lb 9.6 oz 202 lb 9.677 oz 200 lb 3 oz Constitutional: No Distress, Calm Neck: Supple Negative JVD Respiratory: Clear to A&P Bilaterally Cardiovascular: S1 S2 Regular Rate and Rhythm Grade 2/6 SHE Gastrointestinal: Soft Benign Normal Bowel Sounds Ext: No Edema Labs: CBC, BMP 12/14/17 05:30 12/14/17 05:30 INR, PTT INR 1.57 (0.83-1.09) H 12/13/17 15:45 Hepatic Panel Total Bilirubin 2.2 mg/dL (0.2-1) H 12/14/17 05:30 Direct Bilirubin 0.5 mg/dL (0.0-0.2) H 12/13/17 05:30 AST 76 U/L (15-37) H 12/14/17 05:30 ALT 176 U/L (13-61) H 12/14/17 05:30 Alkaline Phosphatase 114 U/L (45-117) 12/14/17 05:30 Albumin 2.8 g/dl (3.4-5.0) L 12/14/17 05:30 Assessment/Plan ASSESSMENT: 1. PAD post right Fem-Fem Bypass 2. CAD angina pectoris 3. Diastolic LV dysfunction with class 0 NYHA classification LV failure 4. Persistent atrial Fibrillation with [id number] score of 4-5 on A/C therapy with DOAC's/Eliquis 5. History of CVA with residual deficit 6. HTN 7. Hypercholesterolemia 8. History of seizure Disorder 9. History of GERD 10. History of BPH PLAN: 1. Continue Elquis with close monitoring of CBC 2. Continue Lopressor and titration of dosage as needed and as tolerated 3. Continue Norvasc but decrease dosage 4. Continue Lisinopril 5. Continue Imdur 6. Resumption of statin therapy once LFT's at baseline Loy Stephens M.D.
--- NOTE | 2017-12-15 15:11 | CONS ---
DATE OF CONSULTATION: 12/15/2017 CONSULTATION REQUESTED BY: Rhoda Hager MD CHIEF COMPLAINT: Cardiovascular evaluation post peripheral bypass surgery. History was predominantly obtained from the chart. Patient has expressive aphasia post CVA. A 62-year-old male of descent with known history of coronary artery disease, angina pectoris, diastolic left ventricular dysfunction, with clinical class 0 [place] [employer] classification left ventricular failure, persistent atrial fibrillation, [id number] score of 4 to 5, on chronic anticoagulation therapy, cerebrovascular disease with residual deficit, hypertensive cardiovascular disease, hypercholesterolemia, peripheral vascular disease, seizure disorder, gastroesophageal reflux disease, who was admitted to [facility] for purpose of peripheral bypass surgery, which was performed without any complications. Postoperative course was complicated by fever. Cardiovascular evaluation was requested for further management. As noted above, patient has expressive aphasia. He does not appear to be in any distress. Upon directly questioning the patient, he denies any chest discomfort and he denies any dyspnea. He does not report any dizziness or lightheadedness. Patient does not report any palpitations. Pre-procedure cardiovascular evaluation was performed at the long-term where he resides, which included echocardiography dated May 17, 2017, revealed normal left ventricular systolic function, left ventricular diastolic dysfunction, trace aortic valve regurgitation, trace mitral valve regurgitation, with aortic root dilatation. No stress test was performed. PAST MEDICAL HISTORY: Coronary artery disease, angina pectoris--stable, diastolic left ventricular dysfunction with clinical class 0 [place] [employer] classification left ventricular failure, persistent atrial fibrillation, on chronic anticoagulation therapy, cerebrovascular disease with right-sided upper extremity weakness, hypertensive cardiovascular disease, hypercholesterolemia, seizure disorder, gastroesophageal reflux disease, benign prostatic hypertrophy. SOCIAL HISTORY: Resides at a long-term, [facility]. FAMILY HISTORY: Positive coronary artery disease. ALLERGIES: None reported. Medical therapy currently includes Norvasc 5 mg once a day, Eliquis 5 mg twice a day, Flexeril 5 mg once a day, Proscar 5 mg once a day, piperacillin with tazobactam 3.375 g every 8 hours, Imdur 30 mg once a day, Keppra 1500 mg twice a day, lisinopril 5 mg once a day, Lopressor 25 mg once a day, morphine sulfate 2 mg IV push every 6 hours as needed, Zofran 4 mg IV push every 6 hours as needed, Protonix 40 mg once a day. REVIEW OF SYSTEMS: Difficult to obtain. Head and Neck: No headache, photophobia. Respiratory: Denies cough. Cardiovascular: As noted above. Gastrointestinal: No nausea, no vomiting, no diarrhea or abdominal discomfort. Genitourinary: No symptoms reported. Musculoskeletal: Right upper extremity and right lower extremity weakness. PHYSICAL EXAMINATION: Vital Signs: Blood pressure 123/74 mmHg. Pulse rate of 105 beats per minute. Head and Neck: Pupils equal, react to light and accommodation. Extraocular muscles are intact. Anicteric sclerae. Negative JVD. No bruit appreciated. Chest: Diminished breath sounds at the bases. Cardiovascular: S1, S2 irregularly irregular. Grade 1 to 2/6 systolic ejection murmur. No clicks or gallops. Abdomen: Soft, benign. Normoactive bowel sound. Extremities: No edema. Diminished distal pulses. No calf tenderness. Electrocardiogram dated December 12, 2017, revealed sinus rhythm at 97 beats per minute with probable anteroseptal wall myocardial infarction, age undetermined. CBC revealed white cell count 15.2, hemoglobin 11.2, platelet count 144, coagulation revealed INR of 1.57. Basic metabolic profile revealed a sodium 140, potassium 3.7, BUN 10, creatinine 0.9, glucose 117, with AST of 76 and ALT of 176. ASSESSMENT: 1. Peripheral vascular disease post femorofemoral bypass, postoperative fever. 2. Coronary artery disease with evidence of anteroseptal wall myocardial infarction, age undetermined. Normal left ventricular systolic function with no regional wall motion abnormality on echocardiography, angina pectoris. 3. Diastolic left ventricular dysfunction with clinical class 0 [place] [employer] classification left ventricular failure. 4. Persistent atrial fibrillation with [id number] score of 4 to 5, on anticoagulation therapy with Eliquis. 5. History of cerebrovascular disease with residual deficit. 6. Hypertensive cardiovascular disease. 7. Hypercholesterolemia. 8. History of seizure disorder. 9. Abnormal liver function testing. 10. History of benign prostatic hypertrophy. RECOMMENDATION: 1. Continuation of Eliquis with close monitoring of CBC. 2. Continuation of Lopressor and further titration of dosage. 3. Continuation of Norvasc but decreasing dosage. 4. Continuation of lisinopril. 5. Continuation of Imdur. 6. Resumption of statin therapy once liver function testing is at baseline. Thank you for the kind referral. RODRIGO TUCKER M.D. [id number]
[2017-12-15] MEDS: METOPROLOL TARTRATE 25 MG TABLET (FP) PO SCH (21:25)
[2017-12-15] MEDS: CHLORHEXIDINE GLUCONATE 4% CLEANSER FOR DECOLONIZATION TP SCH (21:32)
[2017-12-16] MEDS ORDERED: PIPERACILLIN/TAZOBACTAM 3.375 GM VIAL IVPB ONE ×2 (02:20→09:20)
[2017-12-16] MEDS ORDERED: DEXTROSE 5%-WATER - 50 ML IVPB ONE ×2 (02:20→09:20)
[2017-12-16] MEDS: PIPERACILLIN/TAZOB 3.375 GM 3.375 GM in DEXTROSE 5%-WATER - 50 ML IVPB SCH ×2 (02:32→09:21)
[2017-12-16] MEDS: SODIUM CHLORIDE 1,000 ML IV SCH (05:40)
[2017-12-16 07:43] LABS: BASO % 0.4 % (0-2.0); HEMOGLOBIN 10.2 GM/dL (11.7-16.9); LYMPH % 22.3 % (8-40); MCH 27.9 pg (25.7-33.7); MCHC 31.8 g/dl (32.0-35.9); MEAN CELL VOLUME 87.9 fl (80-96); MEAN PLT VOLUME 9.5 fl (7.5-11.1); MONO % 11.3 % (3.8-10.2); PLATELET COUNT 158 K/MM3 (134-434); RBC 3.64 M/mm3 (4.00-5.60); RDW 12.4 % (11.9-15.9); WHITE BLOOD COUNT 10.8 K/mm3 (4.0-10.0)
[2017-12-16 08:29] LABS: ALBUMIN 2.3 g/dl (3.4-5.0); ALK PHOS 102 U/L (45-117); ANION GAP 6 MMOL/L (8-16); BILIRUBIN,TOTAL 1.2 mg/dL (0.2-1); BLOOD UREA NITROGEN 10 mg/dL (7-18); CALCIUM 7.7 mg/dL (8.5-10.1); CHLORIDE 113 mmol/L (98-107); CO2 24 mmol/L (21-32); CREATININE 0.7 mg/dL (0.55-1.3); GLUCOSE,RANDOM 97 mg/dL (74-106); POTASSIUM 3.6 mmol/L (3.5-5.1); SGOT/AST 37 U/L (15-37); SGPT/ALT 84 U/L (13-61); SODIUM 143 mmol/L (136-145); TOT PROT 5.7 g/dl (6.4-8.2)
--- NOTE | 2017-12-16 08:41 | PN ---
Progress Note (short form) - Note Progress Note: Surgery POD #4 Femoral-Femoral bypass with PTFE graft patient seen and examined at the bedside. Patient resting comfortably and denies pain. He had low grade fever over the weekend (Tmax 100.5) currently afebrile. When asked if his pain is controlled he says yes. He denies any CP, SOB, N/V or chills. He is tolerating his diet. Vital Signs Temp 98.5 F 12/16/17 05:30 Pulse 95 H 12/16/17 05:30 Resp 28 H 12/16/17 05:30 BP 144/75 12/16/17 05:30 Pulse Ox 95 12/15/17 21:00 Intake & Output 12/15/17 12/15/17 12/16/17 11:59 23:59 11:59 Intake Total 130 500 375 Balance 130 500 375 Weight 200 lb 3 oz 194 lb 12.8 oz Intake: IV 125 Normal Saline - 1,000 ml 125 @ 125 mls/hr IV ASDIR AMANDA Rx#:[id number] IVPB 50 50 50 Oral 80 450 200 Other: Voiding Method Incontinent Incontinent # Unmeasured Voids Void 3 2 1 Bowel Movement No No Weight Measurement Method Built in Bedscale Built in Bedscale CBC, BMP 12/16/17 07:20 12/16/17 07:20 Blood cultures neg 24hour growth pending final results CXR negative PE: A&Ox3, NAD, resting comfortably Unlabored resp on RA B/L Groin incisions c/d/i with rossi in situ, surrounding tissue intact and no evidence of tracking erythema, collection or active d/c. Dopplerable signal over the graft and at b/l incision sites. Diffuse scrotal edema noted. Thighs soft, supple and non-tender B/L LE compartments soft, non-tender and warm to touch, scds in place Problem List - Problems (1) Status post femorofemoral bypass surgery Assessment/Plan: POD #4 fem-fem bypass, patient doing well. Currently afebrile. 1) Continue Elequis BID 2) OOb as tolerated, up with PT and to chair for meals 3) Trend fevers, and follow up blood cultures 4) Keep dressing clean and dry 5) Scrotal support 6) D/c planning, cleared from vascular stand point, d/c per medicine Code(s): Z95.828 - PRESENCE OF OTHER VASCULAR IMPLANTS AND GRAFTS
[2017-12-16] MEDS: PANTOPRAZOLE 40 MG TABLET (FP) PO SCH (09:21)
[2017-12-16] MEDS: CYCLOBENZAPRINE HCL 10 MG TABLET (FP) PO SCH (09:21)
[2017-12-16] MEDS: levETIRAcetam XR 500 MG TAB PO SCH ×2 (09:22→21:30)
[2017-12-16] MEDS: LISINOPRIL 5 MG TABLET (FP) PO SCH (09:22)
[2017-12-16] MEDS: amLODIPine BESYLATE 2.5 MG TABLET (FP) PO SCH (09:22)
[2017-12-16] MEDS: METOPROLOL TARTRATE 25 MG TABLET (FP) PO SCH ×2 (09:22→21:29)
[2017-12-16] MEDS: APIXABAN 5 MG TABLET PO SCH ×2 (09:22→21:29)
[2017-12-16] MEDS: FINASTERIDE 5 MG TABLET (FP) PO SCH (09:22)
[2017-12-16] MEDS: ISOSORBIDE MONONITRATE 30 MG TAB.SR.24H (FP) PO SCH (09:34)
--- NOTE | 2017-12-16 11:25 | PN ---
Progress Note, Physician History of Present Illness: No complaints. - Current Medication List Current Medications: Active Medications Amlodipine Besylate (Norvasc -) 2.5 mg PO DAILY [facility] [place] Last Admin: 12/16/17 09:22 Dose: 2.5 mg Apixaban (Eliquis -) 5 mg PO BID [facility] [place] Last Admin: 12/16/17 09:22 Dose: 5 mg Chlorhexidine Gluconate (Hibiclens For Decolonization -) 1 applic TP HS [facility] [place] Last Admin: 12/15/17 21:32 Dose: Not Given Cyclobenzaprine HCl (Flexeril -) 5 mg PO DAILY [facility] [place] Last Admin: 12/16/17 09:21 Dose: 5 mg Finasteride (Proscar -) 5 mg PO DAILY [facility] [place] Last Admin: 12/16/17 09:22 Dose: 5 mg Sodium Chloride (Normal Saline -) 1,000 mls @ 125 mls/hr IV ASDIR [facility] [place] Last Admin: 12/16/17 05:40 Dose: 125 mls/hr Piperacillin Sod/Tazobactam (Sod 3.375 gm/ Dextrose) 50 mls @ 100 mls/hr IVPB Q8H-IV [facility]; Protocol Last Admin: 12/16/17 09:21 Dose: 100 mls/hr Isosorbide Mononitrate (Imdur -) 30 mg PO DAILY [facility] [place] Last Admin: 12/16/17 09:34 Dose: 30 mg Levetiracetam (Keppra Xr -) 1,500 mg PO BID [facility] [place] Last Admin: 12/16/17 09:22 Dose: 1,500 mg Lisinopril (Prinivil) 5 mg PO DAILY [facility] [place] Last Admin: 12/16/17 09:22 Dose: 5 mg Metoprolol Tartrate (Lopressor -) 25 mg PO BID [facility] [place] Last Admin: 12/16/17 09:22 Dose: 25 mg Morphine Sulfate (Morphine Sulfate) 2 mg IVPUSH Q6H PRN PRN Reason: PAIN LEVEL 7 - 10 Last Admin: 12/14/17 17:35 Dose: 2 mg Ondansetron HCl (Zofran Injection) 4 mg IVPUSH Q6H PRN PRN Reason: NAUSEA AND/OR VOMITING Pantoprazole Sodium (Protonix -) 40 mg PO DAILY [facility] [place] Last Admin: 12/16/17 09:21 Dose: 40 mg Pneumococcal 13-Valent Conj Vacc (Prevnar 13 Syringe -) 0.5 ml IM .ONCE ONE Stop: 12/16/17 12:01 - Objective Vital Signs: Vital Signs Temperature 99.3 F 12/16/17 10:00 Pulse Rate 99 H 12/16/17 10:00 Respiratory Rate 20 12/16/17 10:00 Blood Pressure 139/78 12/16/17 10:00 O2 Sat by Pulse Oximetry (%) 96 12/16/17 10:00 Constitutional: Yes: No Distress, Calm Neck: Yes: Supple Cardiovascular: Yes: Pulse Irregular Respiratory: Yes: Regular, CTA Bilaterally Gastrointestinal: Yes: Normal Bowel Sounds, Soft Edema: No Labs: CBC, BMP 12/16/17 07:20 12/16/17 07:20 INR, PTT INR 1.57 (0.83-1.09) H 12/13/17 15:45 Problem List - Problems (1) Persistent atrial fibrillation Code(s): I48.1 - PERSISTENT ATRIAL FIBRILLATION (2) Diastolic dysfunction Code(s): I51.9 - HEART DISEASE, UNSPECIFIED (3) CVA, old, aphasia Code(s): I69.320 - APHASIA FOLLOWING CEREBRAL INFARCTION (4) Status post femorofemoral bypass surgery Code(s): Z95.828 - PRESENCE OF OTHER VASCULAR IMPLANTS AND GRAFTS (5) Hypertensive heart disease Code(s): I11.9 - HYPERTENSIVE HEART DISEASE WITHOUT HEART FAILURE Qualifiers: Heart failure presence: without heart failure Qualified Code(s): I11.9 - Hypertensive heart disease without heart failure Assessment/Plan 1. PAD POD#4 right Fem-Fem Bypass 2. CAD angina pectoris 3. Diastolic LV dysfunction with class 0 NYHA classification LV failure 4. Persistent atrial Fibrillation with [id number] score of 4-5 on A/C therapy with DOAC's/Eliquis 5. History of CVA with residual deficit 6. HTN 7. Hypercholesterolemia 8. History of seizure Disorder 9. History of GERD 10. History of BPH PLAN: 1. Continue Eliquis 5 bid close monitoring of CBC 2. Continue Lopressor 25 bid and titration of dosage as needed and as tolerated 3. Continue Norvasc 2.5 qd 4. Continue Lisinopril 5 qd 5. Continue Imdur 30 qd 6. Resumption of statin therapy once LFT's at baseline, check lipid panel 7. Analgesia as needed, complete empiric abx course, GI prophylaxis
[2017-12-16] MEDS ORDERED: PNEUMOC 13-VAL CONJ-DIP CRM/PF 0.5 ML DISP.SYRIN IM ONE (12:00)
--- NOTE | 2017-12-16 12:04 | PN ---
Progress Note (short form) - Note Progress Note: pt seen/ examined pod #4 all f/u noted low grade temp Vital Signs Temp 99.3 F 12/16/17 10:00 Pulse 99 H 12/16/17 10:00 Resp 20 12/16/17 10:00 BP 139/78 12/16/17 10:00 Pulse Ox 96 12/16/17 10:00 Intake & Output 12/15/17 12/16/17 12/16/17 23:59 11:59 23:59 Intake Total 500 375 Balance 500 375 Weight 194 lb 12.8 oz Intake: IV 125 Normal Saline - 1,000 ml 125 @ 125 mls/hr IV ASDIR [facility] Rx#:[id number] IVPB 50 50 Oral 450 200 Other: Voiding Method Incontinent Incontinent # Unmeasured Voids Void 2 1 Bowel Movement No Weight Measurement Method [facility] Active Medications Amlodipine Besylate (Norvasc -) 2.5 mg PO DAILY [facility] Last Admin: 12/16/17 09:22 Dose: 2.5 mg Apixaban (Eliquis -) 5 mg PO BID [facility] Last Admin: 12/16/17 09:22 Dose: 5 mg Chlorhexidine Gluconate (Hibiclens For Decolonization -) 1 applic TP HS [facility] Last Admin: 12/15/17 21:32 Dose: Not Given Cyclobenzaprine HCl (Flexeril -) 5 mg PO DAILY [facility] Last Admin: 12/16/17 09:21 Dose: 5 mg Finasteride (Proscar -) 5 mg PO DAILY [facility] Last Admin: 12/16/17 09:22 Dose: 5 mg Sodium Chloride (Normal Saline -) 1,000 mls @ 125 mls/hr IV ASDIR [facility] Last Admin: 12/16/17 05:40 Dose: 125 mls/hr Piperacillin Sod/Tazobactam (Sod 3.375 gm/ Dextrose) 50 mls @ 100 mls/hr IVPB Q8H-IV [facility]; Protocol Last Admin: 12/16/17 09:21 Dose: 100 mls/hr Isosorbide Mononitrate (Imdur -) 30 mg PO DAILY [facility] Last Admin: 12/16/17 09:34 Dose: 30 mg Levetiracetam (Keppra Xr -) 1,500 mg PO BID [facility] Last Admin: 12/16/17 09:22 Dose: 1,500 mg Lisinopril (Prinivil) 5 mg PO DAILY [facility] Last Admin: 12/16/17 09:22 Dose: 5 mg Metoprolol Tartrate (Lopressor -) 25 mg PO BID [facility] Last Admin: 12/16/17 09:22 Dose: 25 mg Morphine Sulfate (Morphine Sulfate) 2 mg IVPUSH Q6H PRN PRN Reason: PAIN LEVEL 7 - 10 Last Admin: 12/14/17 17:35 Dose: 2 mg Ondansetron HCl (Zofran Injection) 4 mg IVPUSH Q6H PRN PRN Reason: NAUSEA AND/OR VOMITING Pantoprazole Sodium (Protonix -) 40 mg PO DAILY [facility] Last Admin: 12/16/17 09:21 Dose: 40 mg CBC, BMP 12/16/17 07:20 12/16/17 07:20 Microbiology 12/13/17 16:30 Blood Culture - Preliminary Blood - Peripheral Venous NO GROWTH OBTAINED AFTER 48 HOURS, INCUBATION TO CONTINUE FOR 3 DAYS. 12/13/17 15:45 Blood Culture - Preliminary Blood - Peripheral Venous NO GROWTH OBTAINED AFTER 48 HOURS, INCUBATION TO CONTINUE FOR 3 DAYS. Physical Exam. Awake/ comfortable heent- no jvd Lungs- clear cvs- s1, s2 Irregular abd - soft ext- no edema neuro- Aphasic / right side weakness A/P PAD s/p R Fem-Fem Bypass Pod # 3 Atrial Fibrillation HTN Seizure Disorder h/o CVA Post op fever. elevated Lfts Clinically stable abx f/u cultures-- ve so far Pain under control Physical therapy Monitor lfts No statins for now - till lfts normalized will follow discussed with Nursing staff also Problem List - Problems (1) CVA, old, aphasia Code(s): I69.320 - APHASIA FOLLOWING CEREBRAL INFARCTION (2) Elevated liver enzymes Code(s): R74.8 - ABNORMAL LEVELS OF OTHER SERUM ENZYMES (3) Status post femorofemoral bypass surgery Code(s): Z95.828 - PRESENCE OF OTHER VASCULAR IMPLANTS AND GRAFTS (4) Atherosclerosis of right lower extremity with rest pain Code(s): I70.221 - ATHSCL AFOGNAK ARTERIES OF EXTREMITIES W REST PAIN, RIGHT LEG
--- NOTE | 2017-12-16 12:36 | PN ---
Progress Note (short form) - Note Progress Note: No shortness of breath, cough or wheezing. Low grade temps noted. Intake & Output 12/13/17 12/14/17 12/15/17 12/16/17 23:59 23:59 23:59 23:59 Intake Total 2900 1225 630 725 Output Total 1550 Balance 1350 1225 630 725 Weight 202 lb 9.6 oz 202 lb 9.677 oz 200 lb 3 oz 194 lb 12.8 oz Last Vital Signs Temp Pulse Resp BP Pulse Ox 99.3 F 99 H 20 139/78 96 12/16/17 10:00 12/16/17 10:00 12/16/17 10:00 12/16/17 10:00 12/16/17 10:00 Active Medications Amlodipine Besylate (Norvasc -) 2.5 mg PO DAILY [facility] Last Admin: 12/16/17 09:22 Dose: 2.5 mg Apixaban (Eliquis -) 5 mg PO BID [facility] Last Admin: 12/16/17 09:22 Dose: 5 mg Chlorhexidine Gluconate (Hibiclens For Decolonization -) 1 applic TP HS [facility] Last Admin: 12/15/17 21:32 Dose: Not Given Cyclobenzaprine HCl (Flexeril -) 5 mg PO DAILY [facility] Last Admin: 12/16/17 09:21 Dose: 5 mg Finasteride (Proscar -) 5 mg PO DAILY [facility] Last Admin: 12/16/17 09:22 Dose: 5 mg Sodium Chloride (Normal Saline -) 1,000 mls @ 125 mls/hr IV ASDIR [facility] Last Admin: 12/16/17 05:40 Dose: 125 mls/hr Piperacillin Sod/Tazobactam (Sod 3.375 gm/ Dextrose) 50 mls @ 100 mls/hr IVPB Q8H-IV [facility]; Protocol Last Admin: 12/16/17 09:21 Dose: 100 mls/hr Isosorbide Mononitrate (Imdur -) 30 mg PO DAILY [facility] Last Admin: 12/16/17 09:34 Dose: 30 mg Levetiracetam (Keppra Xr -) 1,500 mg PO BID [facility] Last Admin: 12/16/17 09:22 Dose: 1,500 mg Lisinopril (Prinivil) 5 mg PO DAILY [facility] Last Admin: 12/16/17 09:22 Dose: 5 mg Metoprolol Tartrate (Lopressor -) 25 mg PO BID [facility] Last Admin: 12/16/17 09:22 Dose: 25 mg Morphine Sulfate (Morphine Sulfate) 2 mg IVPUSH Q6H PRN PRN Reason: PAIN LEVEL 7 - 10 Last Admin: 12/14/17 17:35 Dose: 2 mg Ondansetron HCl (Zofran Injection) 4 mg IVPUSH Q6H PRN PRN Reason: NAUSEA AND/OR VOMITING Pantoprazole Sodium (Protonix -) 40 mg PO DAILY [facility] Last Admin: 12/16/17 09:21 Dose: 40 mg Gen: NAD at rest Heart: RRR Lung: decreased breath sounds at the bases Abd: soft, nontender Ext: no edema Laboratory Results - last 24 hr 12/15/17 12/15/17 12/16/17 16:41 21:24 05:41 WBC RBC Hgb Hct MCV MCH MCHC RDW Plt Count MPV Absolute Neuts (auto) Neutrophils % Lymphocytes % Monocytes % Eosinophils % Basophils % Nucleated RBC % Sodium Potassium Chloride Carbon Dioxide Anion Gap BUN Creatinine Creat Clearance w eGFR POC Glucometer 164 135 112 Random Glucose Calcium Total Bilirubin AST ALT Alkaline Phosphatase Total Protein Albumin 12/16/17 12/16/17 12/16/17 07:20 07:20 11:10 WBC 10.8 H RBC 3.64 L Hgb 10.2 L Hct 32.0 L MCV 87.9 MCH 27.9 MCHC 31.8 L RDW 12.4 Plt Count 158 MPV 9.5 Absolute Neuts (auto) 6.9 Neutrophils % 64.0 Lymphocytes % 22.3 Monocytes % 11.3 H Eosinophils % 2.0 D Basophils % 0.4 Nucleated RBC % 0 Sodium 143 Potassium 3.6 Chloride 113 H Carbon Dioxide 24 Anion Gap 6 L BUN 10 Creatinine 0.7 Creat Clearance w eGFR > 60 POC Glucometer 109 Random Glucose 97 Calcium 7.7 L Total Bilirubin 1.2 H AST 37 ALT 84 H Alkaline Phosphatase 102 Total Protein 5.7 L Albumin 2.3 L A/P PAD s/p R Fem-Fem Bypass Post op Fever Atrial Fibrillation HTN GERD BPH Seizure Disorder h/o CVA - empiric antibiotics per ID - f/u cultures - rate control - continue anticoagulation - Incentive Spirometry - pain control - O2 as needed Dr Olmedo
--- NOTE | 2017-12-16 15:56 | PN ---
Progress Note (short form) - Note Progress Note: alert looks well aphasic Vital Signs Period Temp Pulse Resp BP Sys/Huitron Pulse Ox Last 24 Hr 98.5 F-100.5 F 95-113 20-28 123-144/67-78 95-96 cor-rrr lungs clear, decreased bs at bases abd soft,nt bilateral femoral incisions with dressing intact, no purulence, no erythema no skin breakdown cxray no infiltrate CBC, BMP 12/16/17 07:20 12/16/17 07:20 Microbiology 12/13/17 16:30 Blood - Peripheral Venous Blood Culture - Preliminary NO GROWTH OBTAINED AFTER 48 HOURS, INCUBATION TO CONTINUE FOR 3 DAYS. 12/13/17 15:45 Blood - Peripheral Venous Blood Culture - Preliminary NO GROWTH OBTAINED AFTER 48 HOURS, INCUBATION TO CONTINUE FOR 3 DAYS. a/p postop fevers resolve day #3 zosyn cultures negative will d/c antibiotics and observe encourage incentive spirometry s/p femfem bypass 12/12 s/p CVA with left hemiparesis/aphasia seizure disorder
[2017-12-16] MEDS: CHLORHEXIDINE GLUCONATE 4% CLEANSER FOR DECOLONIZATION TP SCH (21:30)
[2017-12-17 08:43] LABS: ALBUMIN 2.3 g/dl (3.4-5.0); BILIRUBIN,DIRECT 0.3 mg/dL (0.0-0.2); TOT PROT 5.8 g/dl (6.4-8.2)
[2017-12-17] MEDS: amLODIPine BESYLATE 2.5 MG TABLET (FP) PO SCH (09:28)
[2017-12-17] MEDS: PANTOPRAZOLE 40 MG TABLET (FP) PO SCH (09:28)
[2017-12-17] MEDS: METOPROLOL TARTRATE 25 MG TABLET (FP) PO SCH (09:28)
[2017-12-17] MEDS: ISOSORBIDE MONONITRATE 30 MG TAB.SR.24H (FP) PO SCH (09:28)
[2017-12-17] MEDS: FINASTERIDE 5 MG TABLET (FP) PO SCH (09:28)
[2017-12-17] MEDS: LISINOPRIL 5 MG TABLET (FP) PO SCH (09:28)
[2017-12-17] MEDS: CYCLOBENZAPRINE HCL 10 MG TABLET (FP) PO SCH (09:28)
[2017-12-17] MEDS ORDERED: PT OWN MED DRAWER 7, Y5N ONE (09:29)
[2017-12-17] MEDS: levETIRAcetam XR 500 MG TAB PO SCH (09:33)
[2017-12-17] MEDS: SODIUM CHLORIDE 1,000 ML IV SCH (09:33)
--- NOTE | 2017-12-17 10:24 | PN ---
Progress Note (short form) - Note Progress Note: POD #5 Femoral-Femoral bypass with PTFE graft. Patient seen and examined. Patient resting comfortably, endorses R great toe pain for the past 2 days. Has had low grade fevers since 12/13, tmax yesterday was 99.5. Has some pain at incision sites and scrotum due to edema. Scrotal edema has improved slightly due to scrotal support. He denies any CP, SOB, N/V or chills. He is tolerating his diet. Vital Signs Temp 98.1 F 12/17/17 05:09 Pulse 94 H 12/17/17 05:09 Resp 19 12/17/17 05:09 BP 135/81 12/17/17 05:09 Pulse Ox 96 12/16/17 21:00 Intake & Output 12/16/17 12/16/17 12/17/17 11:59 23:59 11:59 Intake Total 729 391 0906 Balance 517 179 5391 Weight 194 lb 12.8 oz 196 lb 2 oz Intake: IV 125 1500 Normal Saline - 1,000 ml 125 1500 @ 125 mls/hr IV ASDIR [facility] Rx#:[id number] IVPB 50 Oral 200 950 Other: Voiding Method Incontinent Incontinent # Unmeasured Voids Void 1 3 Bowel Movement No Yes # Bowel Movements 2 Weight Measurement Method Built in [facility] Built in [facility] CBC, BMP 12/16/17 07:20 12/16/17 07:20 Blood cultures from 12/13 prelim neg CXR negative from 12/14 PE: A&Ox3, NAD, resting comfortably Unlabored resp on RA B/L Groin incisions c/d/i with rossi intact. Mild serous drainage on dressings , no drainage expressed from incisions, no erythema, no purulent drainage, no crepitus. Triphasic signal over fem-fem graft. L dp/pt with triphasic signals. R PT/DP unable to appreciate signals. Diffuse scrotal edema improved from yesterday (scrotal support in place). Thighs soft, supple and non-tender. R foot with no ulcerations, feet warm, cap refill brisk. B/L LE compartments soft, non-tender and warm to touch, scds in place Problem List - Problems (1) Status post femorofemoral bypass surgery Assessment/Plan: 62 y/o M who resides at [facility], with PMHx significant for A-fib on Eliquis, CVA with right-sided hemiparesis, HTN, seizures, PVD, aphasia, anemia, GERD, SBO, and BPH now admitted for elective fem -fem PTFE graft on 12/12. POD #5 fem-fem bypass, low grade temps on Zosyn 1) Continue Eliquis BID 2) OOb as tolerated, up with PT and to chair for meals 3) Trend fevers, and follow up blood cultures 4) Change dressings as needed with 4x4 and tegaderm (at least BID) 5) Continue Scrotal support 6) D/c planning, cleared from vascular stand point, d/c per ID
[2017-12-17] MEDS: APIXABAN 5 MG TABLET PO SCH (10:44)
--- NOTE | 2017-12-17 11:32 | PN ---
Progress Note (short form) - Note Progress Note: Chief Complaint: Events noted, notes reviewed, sitting in a chair, non communicative, no distress History of Present Illness: Seen and examined. Events noted, notes reviewed, sitting in a chair, non communicative, no distress Medications: Current Medications Amlodipine Besylate (Norvasc -) 2.5 mg PO DAILY [facility] Last Admin: 12/17/17 09:28 Dose: 2.5 mg Apixaban (Eliquis -) 5 mg PO BID [facility] Last Admin: 12/17/17 10:44 Dose: 5 mg Chlorhexidine Gluconate (Hibiclens For Decolonization -) 1 applic TP HS [facility] Last Admin: 12/16/17 21:30 Dose: Not Given Cyclobenzaprine HCl (Flexeril -) 5 mg PO DAILY [facility] Last Admin: 12/17/17 09:28 Dose: 5 mg Finasteride (Proscar -) 5 mg PO DAILY [facility] Last Admin: 12/17/17 09:28 Dose: 5 mg Sodium Chloride (Normal Saline -) 1,000 mls @ 125 mls/hr IV ASDIR [facility] Last Admin: 12/17/17 09:33 Dose: 125 mls/hr Isosorbide Mononitrate (Imdur -) 30 mg PO DAILY [facility] Last Admin: 12/17/17 09:28 Dose: 30 mg Levetiracetam (Keppra Xr -) 1,500 mg PO BID [facility] Last Admin: 12/17/17 09:33 Dose: 1,500 mg Lisinopril (Prinivil) 5 mg PO DAILY [facility] Last Admin: 12/17/17 09:28 Dose: 5 mg Metoprolol Tartrate (Lopressor -) 25 mg PO BID [facility] Last Admin: 12/17/17 09:28 Dose: 25 mg Morphine Sulfate (Morphine Sulfate) 2 mg IVPUSH Q6H PRN PRN Reason: PAIN LEVEL 7 - 10 Last Admin: 12/14/17 17:35 Dose: 2 mg Ondansetron HCl (Zofran Injection) 4 mg IVPUSH Q6H PRN PRN Reason: NAUSEA AND/OR VOMITING Pantoprazole Sodium (Protonix -) 40 mg PO DAILY [facility] Last Admin: 12/17/17 09:28 Dose: 40 mg Vital Signs: Last Vital Signs Temp Pulse Resp BP Pulse Ox 98.1 F 94 H 19 135/81 96 12/17/17 05:09 12/17/17 05:09 12/17/17 05:09 12/17/17 05:09 12/16/17 21:00 Intake & Output 12/14/17 12/15/17 12/16/17 12/17/17 23:59 23:59 23:59 23:59 Intake Total 2945 120 6342 1500 Balance 7196 331 6389 1500 Weight 202 lb 9.677 oz 200 lb 3 oz 194 lb 12.8 oz 196 lb 2 oz Constitutional: No Distress, Calm Neck: Supple Negative JVD Respiratory: Clear to A&P Bilaterally Cardiovascular: S1 S2 Regular Rate and Rhythm Grade 2/6 SHE Gastrointestinal: Soft Benign Normal Bowel Sounds Ext: No Edema Labs: CBC, BMP 12/16/17 07:20 12/16/17 07:20 Assessment/Plan ASSESSMENT: 1. PAD post right Fem-Fem Bypass POD#5 2. CAD angina pectoris 3. Diastolic LV dysfunction with class 0 NYHA classification LV failure 4. Persistent atrial Fibrillation with [id number] score of 4-5 on A/C therapy with DOAC's/Eliquis 5. History of CVA with residual deficit 6. HTN 7. Hypercholesterolemia 8. History of seizure Disorder 9. History of GERD 10. History of BPH PLAN: 1. Continue Elquis with close monitoring of CBC 2. Continue Lopressor and titration of dosage as needed and as tolerated 3. Continue Norvasc 4. Continue Lisinopril 5. Continue Imdur 6. Resumption of statin therapy once LFT's at baseline Loy Stephens M.D.
--- NOTE | 2017-12-17 12:24 | DS ---
Physical Examination Vital Signs: Vital Signs Temperature 97.9 F 12/17/17 10:00 Pulse Rate 95 H 12/17/17 10:00 Respiratory Rate 18 12/17/17 10:00 Blood Pressure 142/80 12/17/17 10:00 O2 Sat by Pulse Oximetry (%) 95 12/17/17 10:00 Constitutional: Yes: No Distress, Calm Cardiovascular: Yes: Regular Rate and Rhythm Respiratory: Yes: CTA Bilaterally Gastrointestinal: Yes: Normal Bowel Sounds, Soft. No: Tenderness Extremities: Yes: Other (scrotal edema, B/l groin-- no hematomas noted) Edema: No Labs: CBC, BMP 12/16/17 07:20 12/16/17 07:20 Discharge Summary Reason For Visit: RIGHT LOWER EXTREMITY CLAUDICATION Current Active Problems CVA, old, aphasia (Acute) Diastolic dysfunction (Acute) Elevated liver enzymes (Acute) Hypertensive heart disease (Acute) Persistent atrial fibrillation (Acute) Status post femorofemoral bypass surgery (Acute) Hospital Course: ADMISSION HISTORY HISTORY OF PRESENT ILLNESS: Pt is a 62 y/o gentleman with PMH CVA (residual R sided weakness, aphasia), AF ( on Eliquis), GERD, HTN, seizures (on Keppra), PVD, anemia, GERD, SBO, and BPH brought from [facility] for elective R Fem-Fem bypass by Dr. Powell yesterday. Pt was transferred to ICU for recovery and was noted at one point to have seizure- like activity (~1.5min), for which he was given Keppra and which resolved prior to initiation of ativan. F/u Lactic acid was increased and has since resolved. However, pt developed fever, initially 100.4 and now 101.9. Pt has no complaints at this time. ROS negative. Hospital course Pt was seen by ID , Vascular and Cardiology. Was initially on antibiotics-- cultures came back negative antibiotics discontinued-- he remains afebrile Pt was seen by Vascular Fem -pop bypass was on 12/12. stable for dc back to [place] he has scrotal edema and needs scrotal support-- likely due to surgery Condition: Stable - Instructions Diet, Activity, Other Instructions: Discharge Instructions Dear HUGO DURANT, Post Operative Instructions Physical activity Resume your normal everyday activity as tolerated no heavy lifting or exercise until seen by your surgeon. You may walk and climb stairs as tolerated with no pain. Wound care Keep your dressing clean and dry. Do not shower or submerge the incisions, until cleared by Dr Powell. Do not apply lotions or ointments to the incisions. The rossi will be removed in your surgeon's office as scheduled. Diet There are no dietary restrictions. Eat healthy, high-fiber foods. Drink 6 to 8 glasses of liquid each day. This will assist in keeping your bowels are regular. Pain management You may take Tylenol or acetaminophen. Any pain prescription medication ordered should be taken as prescribed for moderate to severe pain. Call Dr. Powell for any of the following: Severe pain not relieved by medication Fever of 101 or higher Excessive bleeding or drainage on dressing If you experience any chest pain or shortness of breath please seek emergency treatment immediately. Please follow up with Dr. Powell at the wound center for Staple removal on Saturday (12/20/2017) for staple removal. Please call for an appointment [phone]. Disposition: [facility] - Home Medications Comprehensive Discharge Medication List: Ambulatory Orders Amlodipine Besylate [Norvasc -] 5 mg PO DAILY 12/14/12 Aspirin [ASA -] 81 mg PO DAILY 12/14/12 Docusate Sodium [Colace -] 100 mg PO DAILY 12/14/12 Isosorbide Mononitrate [Imdur] 30 mg PO DAILY 12/14/12 Lisinopril [Prinivil -] 5 mg PO DAILY 12/14/12 Metoprolol Tartrate [Lopressor -] 25 mg PO DAILY 12/14/12 Topiramate [Topamax] 50 mg PO BID 12/14/12 levETIRAcetam [Keppra Xr -] 1,500 mg PO BID 12/14/12 Cyclobenzaprine HCl 10 mg PO DAILY 12/11/17 Finasteride 5 mg PO DAILY 12/11/17 Gabapentin 300 mg PO TID 12/11/17 Multivitamin [Daily Multiple Vitamin] 1 each PO DAILY 12/11/17 Ranitidine HCl [Zantac] 200 mg PO DAILY 12/11/17 Rivaroxaban [Xarelto -] DAILY 12/11/17 Tamsulosin HCl 0.4 mg PO DAILY 12/11/17 Warfarin Sodium [Coumadin] PO DAILY 12/11/17 Xalatan 0.005% Eye Drops - 1 drop OU DAILY 12/11/17
--- NOTE | 2017-12-17 13:12 | PN ---
Progress Note (short form) - Note Progress Note: No shortness of breath, cough, or wheezing. No acute events overnight. Intake & Output 12/14/17 12/15/17 12/16/17 12/17/17 23:59 23:59 23:59 23:59 Intake Total 0608 003 5084 1500 Balance 4233 666 5530 1500 Weight 202 lb 9.677 oz 200 lb 3 oz 194 lb 12.8 oz 196 lb 2 oz Last Vital Signs Temp Pulse Resp BP Pulse Ox 97.9 F 95 H 18 142/80 95 12/17/17 10:00 12/17/17 10:00 12/17/17 10:00 12/17/17 10:00 12/17/17 10:00 Active Medications Amlodipine Besylate (Norvasc -) 2.5 mg PO DAILY FOR[facility]LY [facility], [facility]–1983 Last Admin: 12/17/17 09:28 Dose: 2.5 mg Apixaban (Eliquis -) 5 mg PO BID [facility], [facility]1983 Last Admin: 12/17/17 10:44 Dose: 5 mg Chlorhexidine Gluconate (Hibiclens For Decolonization -) 1 applic TP HS [facility], [facility]–1983 Last Admin: 12/16/17 21:30 Dose: Not Given Cyclobenzaprine HCl (Flexeril -) 5 mg PO DAILY [facility], [facility]1983 Last Admin: 12/17/17 09:28 Dose: 5 mg Finasteride (Proscar -) 5 mg PO DAILY [facility], [facility]1983 Last Admin: 12/17/17 09:28 Dose: 5 mg Isosorbide Mononitrate (Imdur -) 30 mg PO DAILY [facility], [facility]1983 Last Admin: 12/17/17 09:28 Dose: 30 mg Levetiracetam (Keppra Xr -) 1,500 mg PO BID [facility], [facility]1983 Last Admin: 12/17/17 09:33 Dose: 1,500 mg Lisinopril (Prinivil) 5 mg PO DAILY [facility], [facility]1983 Last Admin: 12/17/17 09:28 Dose: 5 mg Metoprolol Tartrate (Lopressor -) 25 mg PO BID [facility], [facility]1983 Last Admin: 12/17/17 09:28 Dose: 25 mg Morphine Sulfate (Morphine Sulfate) 2 mg IVPUSH Q6H PRN PRN Reason: PAIN LEVEL 7 - 10 Last Admin: 12/14/17 17:35 Dose: 2 mg Ondansetron HCl (Zofran Injection) 4 mg IVPUSH Q6H PRN PRN Reason: NAUSEA AND/OR VOMITING Pantoprazole Sodium (Protonix -) 40 mg PO DAILY AMANDA Last Admin: 12/17/17 09:28 Dose: 40 mg Gen: NAD at rest Heart: RRR Lung: decreased breath sounds at the bases Abd: soft, nontender Ext: no edema Laboratory Results - last 24 hr 12/16/17 12/17/17 12/17/17 16:47 06:30 10:55 POC Glucometer 110 113 Total Bilirubin 1.0 Direct Bilirubin 0.3 H AST 48 H ALT 81 H Alkaline Phosphatase 110 Total Protein 5.8 L Albumin 2.3 L Triglycerides 94 Cholesterol 125 Total LDL Cholesterol 82 HDL Cholesterol 24 L A/P PAD s/p Right Fem-Fem Bypass Post op Fever Atrial Fibrillation HTN GERD BPH Seizure Disorder h/o CVA - anticoagulation - Incentive Spirometry - pain control - O2 as needed - D/C planning Dr Olmedo
[2017-12-17 19:06] VITALS: BP 134/74; PULSE 105; TEMP 99.5
== END 2017-12-17 20:13 | DRG 173 ==
LOC: JSAMEDAYSX 08:44 → EDSTATUS 10:30 → JICU 16:44 → J6S 12-14 13:20
PROVIDERS: ADMIT Surgery Vascular Surgery; ATTEND Internal Medicine
PROC: 041K0JH Bypass Right Femoral Artery to Right Femoral Artery with Synthetic Substitute, Open Approach (ICD-10-PCS; principal; 2017-12-13)
DX: I74.5 Embolism and thrombosis of iliac artery (principal); I70.221 Atherosclerosis of native arteries of extremities with rest pain, right leg; I10 Essential (primary) hypertension; I48.91 Unspecified atrial fibrillation; D64.9 Anemia, unspecified; N40.0 Benign prostatic hyperplasia without lower urinary tract symptoms; K21.9 Gastro-esophageal reflux disease without esophagitis; I69.351 Hemiplegia and hemiparesis following cerebral infarction affecting right dominant side; I73.9 Peripheral vascular disease, unspecified; E87.2 Acidosis; E78.00 Pure hypercholesterolemia, unspecified; D72.829 Elevated white blood cell count, unspecified; R50.82 Postprocedural fever; R00.0 Tachycardia, unspecified; I69.320 Aphasia following cerebral infarction; G40.909 Epilepsy, unspecified, not intractable, without status epilepticus; R74.8 Abnormal levels of other serum enzymes; I25.110 Atherosclerotic heart disease of native coronary artery with unstable angina pectoris; Z79.01 Long term (current) use of anticoagulants
CPT/HCPCS: 36415; 71045-TC-FY; 76705-TC; 80053; 80061; 80076; 81003; 81015; 82550; 82553; 82962; 83605; 83735; 84100; 84443; 84484; 85025; 85610; 86850; 86900; 86901; 87040; 90670; 90688; 93005; 93010; 94010; 94760; 97116-GP; 97161-GP; G0008; J0131; J1644; J7030